=== PATIENT | female | born 1990 | race Caucasian/White ===

== ENCOUNTER → 2017-01-09 | Outpatient (CLI) | payer BC ==
[~2017-01-09] MED LIST: ACET1TAB43 PO; ASPI-586 PO; BIRTH CONTROL PILLS; CEPH500C PO; ENOX40DI13 SQ; ENOX40DI8; FERR-57 PO; FLUO40CA PO; FRS325T; HYDR-3600 PO; HYDR1TAB PO; IBUP-1773 PO; MECL25TA3 PO; MONONESSA; PREN1TAB14 PO; PREN1TAB39 PO; SERT50TA9 PO; TRAZ150T42 PO; VICODIN; [UNRECOGNIZED DRUG - CODE] SC
== END ==
LOC: LAB 12:12
PROVIDERS: ATTEND Obstetrics & Gynecology
DX: Z32.01 Encounter for pregnancy test, result positive (principal)
CPT/HCPCS: 36415; 84702

== ENCOUNTER → 2017-02-02 | Outpatient (CLI) | payer BC ==
--- NOTE | 2017-02-02 18:11 | Diagnostic Imaging Report ---
Transabdominal and transvaginal pelvic ultrasound. INDICATION: Pelvic pain. IUD in place. FINDINGS: The uterus is 7.9 x 5.1 x 4.4 cm. Endometrial thickness is 0.6 cm. There is an IUD that appears in good position. No myometrial mass is seen. The right ovary is 3.3 x 3 x 1.5 cm. The left ovary is 3.9 x 3.9 x 1.9 cm. The urinary bladder appears unremarkable. Arterial and venous waveforms are seen in both ovaries. There is no free fluid or fluid collection in the pelvis seen. IMPRESSION: No definite abnormality. IUD is seen in good position. Dictated by: Dictated on workstation # [id number]
== END ==
LOC: RAD 10:20
PROVIDERS: ATTEND Obstetrics & Gynecology
DX: R10.2 Pelvic and perineal pain (principal); Z97.5 Presence of (intrauterine) contraceptive device
CPT/HCPCS: 76830; 76856

== ENCOUNTER 2017-11-21 14:27 | Day surgery (SDC) | payer BC ==
[~2017-11-21] VITALS: Ht 160 cm; Wt 56.7 kg
[2017-11-21] MEDS ORDERED: LACTATED RINGERS 1,000 ML IV ONE (14:32)
--- OUTSIDE RECORDS SUMMARY | 2017-11-21 14:32 | XMS REPORT | Continuity of Care Document ---
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 [facility] Arthralgia of temporomandibular joint 12/24/2014 [facility] Unspecified essential hypertension 12/24/2014 [facility] Medications Medication Details Route Status Patient Instructions Ordering Provider Order Date Source Metoprolol Active [facility] Methocarbamol 750 MG Oral Tablet [Robaxin] =750 mg, 1 tab, PO, BID, X 14 Days, # 28 tab, 2 Refill(s) Inactive [facility] naproxen sodium 550 mg oral tablet =550 mg, 1 tab, PO, BID, PRN for pain, X 30 Days, # 60 tab, 1 Refill(s) Inactive [facility] Diazepam 5 MG Oral Tablet [Valium] =5 mg, 1 tab, PO, QHS, X 7 Days, # 7 tab, 0 Refill(s) Inactive [facility] meloxicam 7.5 MG Oral Tablet [Mobic] =7.5 mg, 1 tab, PO, Daily, # 90 tab, 0 Refill(s) Active [facility] Allergies, Adverse Reactions, Alerts Substance Category Reaction Severity Reaction type Status Date Reported Comments Source penicillins Assertion Drug allergy [facility] Immunizations Results Vital Signs Vital Sign Value Date Comments Source Cuff Size Adult Regular Cuff
(01/16/15 10:51 AM) 01/16/2015 [facility] Heart Rate 108 bpm 2014 [facility] Temperature Oral 97.3 [degF] 01/16/2015 [facility] Resp. Rate 16 BRMIN 2014 [facility] BP Site Right Arm
(01/16/15 10:51 AM) 01/16/2015 [facility] Oxygen Saturation 100 % 01/16 [facility] Systolic BP 128 mmHg 2014 [facility] Diastolic BP 86 mmHg 2014 [facility] O2 Source Room Air
(01/16/15 10:51 AM) 01/16/2015 [facility] Cuff Size Adult Regular Cuff
(01/01/15 1:00 PM) 01/01/2015 [facility] Heart Rate 111 bpm 2014 [facility] Resp. Rate 20 BRMIN 2014 [facility] Systolic BP 133 mmHg 2014 [facility] Diastolic BP 88 mmHg 2014 [facility] BP Site Right Arm
(01/01/15 1:00 PM) 01/01/2015 [facility] BP Site Right Arm
(12/19/14 1:29 PM) 12/19/2014 [facility] Cuff Size Adult Regular Cuff
(12/19/14 1:29 PM) 12/19/2014 [facility] Systolic BP 124 mmHg 2014 [facility] Diastolic BP 83 mmHg 2014 [facility] Resp. Rate 16 BRMIN 2014 [facility] Heart Rate 92 bpm 12/19/2014 [facility] Temperature Oral 98.7 [degF] 12/19/2014 [facility] Encounters Location Location Details Encounter Type Encounter Number Reason For Visit Attending Provider ADM Date DC Date Status Source [facility] [id number] Shashi Potter 12/19/2014 12/20/2014 [facility] [id number] Kristian Quijano 01/01/2015 01/02/2015 [facility] [id number] Kristian [facility] 01/16/2015 01/17/2015 [facility] Procedures Plan of Care Social History Assessment and Plan Assessment and Plan Date Source Title:Ambulatory Patient Education Author:Cesar Garcia [facility]. [facility] [address] [place] [address] Visit Information/Informacion de Visita Name/Nombre: QUIQUEEMMANUELSUSAN HICKMANSAY Date of /Fecha de Nacimiento: 1990 12:00 AM Visit Date/Fecha de Visita: [facility] Provider/Proveedor de Clinica: Resident Provider: Cesar Garcia Attending Provider: Kristian Quijano This is the list of current medications in your medical record. It may include medications from visits to other areas of the hospital and medications you told us were prescribed by other doctors. If you have questions about any medications that were not prescribed from this clinic, please contact the doctor who prescribed them. Your Medications/Nicky Medicamentos Here is a list of your medications/Aqu est cathi lista de nicky medicinas. Medication/Strength Dose Route Frequency Indications/Special Instructions/ Comments meloxicam (Mobic 7.5 mg oral tablet) 7.5 mg By Mouth daily methocarbamol (Robaxin-750 750 mg oral tablet) 750 mg By Mouth twice per day naproxen (naproxen sodium 550 mg oral tablet) 550 mg By Mouth twice per day as needed for for pain metoprolol (metoprolol) If you haven't been contacted for an appointment within two weeks, please call [phone] for [facility] or for [facility]. Future Orders Placed Today/Ordenes de Doctor Patient Follow-up Information/Informacion de seguimiento del paciente Your Upcoming Appointments/Nicky proximas citas Please bring all home medications to every visit with us at [facility]. Your safety and education around medications is our goal. (Prescription , non prescription and herbal supplements) Date Time Location Reason Provider No Appointments found Additional Patient Information/Informacion adicional del paciente: Blood Pressure: 128/86 mmHg Patient Instructions/Instrucciones para el Paciente All smokers are encouraged to stop smoking. If you would like help, talk to your doctor or call [facility] [place] [facility] Quitline at 9-959-UCCF-NOW (1-388-101- 1101). If you have thoughts about committing suicide or otherwise hurting yourself, please call 911 or call Crisis Line at . Prescription leaflets: Take Charge of Your Health with [employer] Sign up today for StepsAwayPixie Technology for access to your health records 27/02. Sc[employer]ix allows you to: Request an appointment Check your lab results Communicate with your providers and care team See provider notes from your visit View immunization records View current medication Sign up Today! Ask your healthcare provider or a [facility] associate for help, or email [email or web address]. [email or web address] 01/21/2015 [facility] * Title:Ambulatory Patient Education Author:Cesar Garcia Date:01/16/15 [facility]. [facility] [address] [place] [address] Visit Information/Informacion de Visita Name/Nombre: MELY SMART Date of /Fecha de Nacimiento: 1990 12:00 AM Visit Date/Fecha de Visita: [facility] Provider/Proveedor de Clinica: Resident Provider: Cesar Garcia Attending Provider: Kristian Quiajno This is the list of current medications in your medical record. It may include medications from visits to other areas of the hospital and medications you told us were prescribed by other doctors. If you have questions about any medications that were not prescribed from this clinic, please contact the doctor who prescribed them. Your Medications/Nicky Medicamentos Here is a list of your medications/Aqu est cathi lista de nicky medicinas. Medication/Strength Dose Route Frequency Indications/Special Instructions/ Comments meloxicam (Mobic 7.5 mg oral tablet) 7.5 mg By Mouth daily methocarbamol (Robaxin-750 750 mg oral tablet) 750 mg By Mouth twice per day naproxen (naproxen sodium 550 mg oral tablet) 550 mg By Mouth twice per day as needed for for pain metoprolol (metoprolol) If you haven't been contacted for an appointment within two weeks, please call [phone] for [facility] or for [place]. Future Orders Placed Today/Ordenes de Doctor Patient Follow-up Information/Informacion de seguimiento del paciente Your Upcoming Appointments/Nicky proximas citas Please bring all home medications to every visit with us at [facility]. Your safety and education around medications is our goal. (Prescription , non prescription and herbal supplements) Date Time Location Reason Provider No Appointments found Additional Patient Information/Informacion adicional del paciente: Blood Pressure: 128/86 mmHg Patient Instructions/Instrucciones para el Paciente All smokers are encouraged to stop smoking. If you would like help, talk to your doctor or call [facility] [place] [facility] Quitline at 0-337-GEBINOW (0-701-477- 7005). If you have thoughts about committing suicide or otherwise hurting yourself, please call 911 or call Crisis Line at . Prescription leaflets: Take Charge of Your Health with [employer] Sign up today for [employer] for access to your health records 27/02. [employer] allows you to: Request an appointment Check your lab results Communicate with your providers and care team See provider notes from your visit View immunization records View current medication Sign up Today! Ask your healthcare provider or a [facility] associate for help, or email SocialPicksMountain View Regional Medical [email or web address] [email or web address]. [email or web address] 01/17/2015 [facility] * Title:Ambulatory Patient Education Author:Kennedy Robbins Date:01/01/15 [facility]. [facility] [address] [place] [id number] Visit Information/Informacion de Visita Name/Nombre: MELY SMART Date of /Fecha de Nacimiento: 1990 12:00 AM Visit Date/Fecha de Visita: [facility] Provider/Proveedor de Clinica: Resident Provider: Yaw Ontiveros DMD Attending Provider: Kristian Quijano This is the list of current medications in your medical record. It may include medications from visits to other areas of the hospital and medications you told us were prescribed by other doctors. If you have questions about any medications that were not prescribed from this clinic, please contact the doctor who prescribed them. Your Medications/Nicky Medicamentos Here is a list of your medications/Aqu est cathi lista de nicky medicinas. Medication/Strength Dose Route Frequency Indications/Special Instructions/ Comments diazepam (Valium 5 mg oral tablet) 5 mg By Mouth at bedtime methylprednisolone (Medrol Dosepak 4 mg oral tablet) 1 packet(s) By Mouth ONCE as directed on package labeling methocarbamol (Robaxin-750 750 mg oral tablet) 750 mg By Mouth twice per day naproxen (naproxen sodium 550 mg oral tablet) 550 mg By Mouth twice per day as needed for for pain metoprolol (metoprolol) If you haven't been contacted for an appointment within two weeks, please call for [facility] or for [place]. Future Orders Placed Today/Ordenes de Doctor Order Name Details Ordering Provider Return to Clinic Appointment Request Requested Start Date/Time: 01/01/15 14:19: 00 RTC Appointment Request: 2 Weeks Reason for Appt: TMJ Special Instructions: f/u Kennedy Robbins Patient Follow-up Information/Informacion de seguimiento del paciente Your Upcoming Appointments/Nicky proximas citas Please bring all home medications to every visit with us at [facility]. Your safety and education around medications is our goal. (Prescription , non prescription and herbal supplements) Date Time Location Reason Provider No Appointments found Additional Patient Information/Informacion adicional del paciente: Blood Pressure: 133/88 mmHg Patient Instructions/Instrucciones para el Paciente All smokers are encouraged to stop smoking. If you would like help, talk to your doctor or call [facility] [place] Tobacco Quitline at 3-860-GTBM-NOW (0-102-982- 7489). If you have thoughts about committing suicide or otherwise hurting yourself, please call 341 or call Crisis Line at . Prescription leaflets: Take Charge of Your Health with [employer] Sign up today for [employer] for access to your health records 27/02. [employer] allows you to: Request an appointment Check your lab results Communicate with your providers and care team See provider notes from your visit View immunization records View current medication Sign up Today! Ask your healthcare provider or a [facility] associate for help, or email [email or web address]. [email or web address] 01/06/2015 [facility] * Title:Ambulatory Patient Education Author:Kennedy Robbins Date:01/01/15 [facility]. [facility] [address] [place] [address] Visit Information/Informacion de Visita Name/Nombre: MELY SMART Date of /Fecha de Nacimiento: 1990 12:00 AM Visit Date/Fecha de Visita: [facility] Provider/Proveedor de Clinica: Resident Provider: Yaw Ontiveros DMD Attending Provider: Kristian Quijano This is the list of current medications in your medical record. It may include medications from visits to other areas of the hospital and medications you told us were prescribed by other doctors. If you have questions about any medications that were not prescribed from this clinic, please contact the doctor who prescribed them. Your Medications/Nicky Medicamentos Here is a list of your medications/Aqu est cathi lista de nicky medicinas. Medication/Strength Dose Route Frequency Indications/Special Instructions/ Comments diazepam (Valium 5 mg oral tablet) 5 mg By Mouth at bedtime methylprednisolone (Medrol Dosepak 4 mg oral tablet) 1 packet(s) By Mouth ONCE as directed on package labeling methocarbamol (Robaxin-750 750 mg oral tablet) 750 mg By Mouth twice per day naproxen (naproxen sodium 550 mg oral tablet) 550 mg By Mouth twice per day as needed for for pain metoprolol (metoprolol) If you haven't been contacted for an appointment within two weeks, please call for [facility] or for [facility]. Future Orders Placed Today/Ordenes de Doctor Order Name Details Ordering Provider Return to Clinic Appointment Request Requested Start Date/Time: 01/01/15 14:19: 00 RTC Appointment Request: 2 Weeks Reason for Appt: TMJ Special Instructions: f/u Kennedy Robbins Patient Follow-up Information/Informacion de seguimiento del paciente Your Upcoming Appointments/Nicky proximas citas Please bring all home medications to every visit with us at [facility]. Your safety and education around medications is our goal. (Prescription , non prescription and herbal supplements) Date Time Location Reason Provider No Appointments found Additional Patient Information/Informacion adicional del paciente: Blood Pressure: 133/88 mmHg Patient Instructions/Instrucciones para el Paciente All smokers are encouraged to stop smoking. If you would like help, talk to your doctor or call [facility] [place] Tobacco Quitline at 0-115-ODIVNOW (4-513-236- 2846). If you have thoughts about committing suicide or otherwise hurting yourself, please call 911 or call Crisis Line at . Prescription leaflets: Take Charge of Your Health with [employer] Sign up today for StepsAwayPixie Technology for access to your health records 27/02. VoxieealSwivel allows you to: Request an appointment Check your lab results Communicate with your providers and care team See provider notes from your visit View immunization records View current medication Sign up Today! Ask your healthcare provider or a [facility] associate for help, or email [email or web address]. [email or web address] medical [email or web address] 01/02/2015 [facility] * Title:Ambulatory Patient Education Author:Kennedy Robbins Date:12/19/14 [facility]. [address] [address] Visit Information/Informacion de Visita Name/Nombre: MELY SMART Date of /Fecha de Nacimiento: 1990 12:00 AM Visit Date/Fecha de Visita: [facility] Provider/Proveedor de Clinica: Resident Provider: Kennedy Robbins Attending Provider: Shashi Potter This is the list of current medications in your medical record. It may include medications from visits to other areas of the hospital and medications you told us were prescribed by other doctors. If you have questions about any medications that were not prescribed from this clinic, please contact the doctor who prescribed them. Your Medications/Nicky Medicamentos Here is a list of your medications/Aqu est cathi lista de nicky medicinas. Medication/Strength Dose Route Frequency Indications/Special Instructions/ Comments methylprednisolone (Medrol Dosepak 4 mg oral tablet) 1 packet(s) By Mouth ONCE as directed on package labeling methocarbamol (Robaxin-750 750 mg oral tablet) 750 mg By Mouth twice per day naproxen (naproxen sodium 550 mg oral tablet) 550 mg By Mouth twice per day as needed for for pain metoprolol (metoprolol) If you haven't been contacted for an appointment within two weeks, please call for [facility] or for [facility]. Future Orders Placed Today/Ordenes de Doctor Order Name Details Ordering Provider Return to Clinic Appointment Request Requested Start Date/Time: 12/19/14 14:45: 00 RTC Appointment Request: Other Follow Up Physician: Nehemias Farah Special Instructions: patient to call to schedule after MRI Kennedy Robbins Patient Follow-up Information/Informacion de seguimiento del paciente Your Upcoming Appointments/Nicky proximas citas Please bring all home medications to every visit with us at [facility]. Your safety and education around medications is our goal. (Prescription , non prescription and herbal supplements) Date Time Location Reason Provider No Appointments found Additional Patient Information/Informacion adicional del paciente: Blood Pressure: 124/83 mmHg Patient Instructions/Instrucciones para el Paciente All smokers are encouraged to stop smoking. If you would like help, talk to your doctor or call [facility] [place] Tobacco Quitline at 4-133-HCOGNOW (8-129-843- 0716). If you have thoughts about committing suicide or otherwise hurting yourself, please call 911 or call Crisis Line at . Prescription leaflets: Take Charge of Your Health with SocialPicksMountain View Regional Medical CenterPixie Technology Sign up today for StepsAwayPixie Technology for access to your health records 27/02. VoxiePixie Technology allows you to: Request an appointment Check your lab results Communicate with your providers and care team See provider notes from your visit View immunization records View current medication Sign up Today! Ask your healthcare provider or a [facility] associate for help, or email [email or web address]. [email or web address] 12/24/2014 [facility] * Title:Ambulatory Patient Education Author:Kennedy Robbins Date:12/19/14 [facility]. [facility] [address] [place] [address] Visit Information/Informacion de Visita Name/Nombre: MELY SMART Date of /Fecha de Nacimiento: 1990 12:00 AM Visit Date/Fecha de Visita: [facility] Provider/Proveedor de Clinica: Resident Provider: Kennedy Robbins Attending Provider: Shashi Potter This is the list of current medications in your medical record. It may include medications from visits to other areas of the hospital and medications you told us were prescribed by other doctors. If you have questions about any medications that were not prescribed from this clinic, please contact the doctor who prescribed them. Your Medications/Nicky Medicamentos Here is a list of your medications/Aqu est cathi lista de nicky medicinas. Medication/Strength Dose Route Frequency Indications/Special Instructions/ Comments methylprednisolone (Medrol Dosepak 4 mg oral tablet) 1 packet(s) By Mouth ONCE as directed on package labeling methocarbamol (Robaxin-750 750 mg oral tablet) 750 mg By Mouth twice per day naproxen (naproxen sodium 550 mg oral tablet) 550 mg By Mouth twice per day as needed for for pain metoprolol (metoprolol) If you haven't been contacted for an appointment within two weeks, please call for [facility] or for [facility]. Future Orders Placed Today/Ordenes de Doctor Order Name Details Ordering Provider Return to Clinic Appointment Request Requested Start Date/Time: 12/19/14 14:45: 00 RTC Appointment Request: Other Follow Up Physician: Nehemias Farah Special Instructions: patient to call to schedule after MRI Kennedy Robbins Patient Follow-up Information/Informacion de seguimiento del paciente Your Upcoming Appointments/Nicky proximas citas Please bring all home medications to every visit with us at [facility]. Your safety and education around medications is our goal. (Prescription , non prescription and herbal supplements) Date Time Location Reason Provider No Appointments found Additional Patient Information/Informacion adicional del paciente: Blood Pressure: 124/83 mmHg Patient Instructions/Instrucciones para el Paciente All smokers are encouraged to stop smoking. If you would like help, talk to your doctor or call The [place] Tobacco Quitline at 0-834-RFNQNOW (8-362-423- 2920). If you have thoughts about committing suicide or otherwise hurting yourself, please call 911 or call Crisis Line at . Prescription leaflets: Take Charge of Your Health with SocialPicksMountain View Regional Medical CenterScopial Fashion Sign up today for [employer] for access to your health records 27/02. Sc[employer]ix allows you to: Request an appointment Check your lab results Communicate with your providers and care team See provider notes from your visit View immunization records View current medication Sign up Today! Ask your healthcare provider or a [facility] associate for help, or email [email or web address]. [email or web address] 12/20/2014 [facility] Family History Advance Directives Functional Status
--- OUTSIDE RECORDS SUMMARY | 2017-11-21 14:33 | XMS REPORT | Summary of Care ---
Author Organization Unknown Address Unknown Phone Unavailable Encounter [facility] Date(s): 01/16/15 - 01/16/15 [facility] [address] [place] [address] [phone] Discharge Disposition: Discharge to Home or Self-care Attending Physician: Kristian Quijano Admitting Physician: Kristian Quijano Vital Signs Most recent to 1 oldest [Reference Range]: Temperature Oral 97.3 DegF [96.4-99.1 DegF] (01/16/15 10:51 AM) Heart Rate [60-100 108 bpm bpm] *HI* (01/16/15 10:51 AM) Resp. Rate [14-20 16 BRMIN BRMIN] (01/16/15 10:51 AM) Blood Pressure 128/86 mmHg [90-140/60-90 mmHg] (01/16/15 10:51 AM) BP Site Right Arm (01/16/15 10:51 AM) Cuff Size Adult Regular Cuff (01/16/15 10:51 AM) Oxygen Saturation 100 % [92-100 %] (01/16/15 10:51 AM) O2 Source Room Air (01/16/15 10:51 AM) Problem List No data available for this section Allergies, Adverse Reactions, Alerts Substance Reaction Severity Status penicillins Active Medications metoprolol Start Date: 12/19/14 Status: Ordered Mobic 7.5 mg oral tablet =7.5 mg, 1 tab, PO, Daily, # 90 tab, 0 Refill(s) Start Date: 01/16/15 Status: Ordered naproxen sodium 550 mg oral tablet =550 mg, 1 tab, PO, BID, PRN for pain, X 30 Days, # 60 tab, 1 Refill(s) Start Date: 12/19/14 Stop Date: 02/17/15 Status: Ordered Robaxin-750 750 mg oral tablet =750 mg, 1 tab, PO, BID, X 14 Days, # 28 tab, 2 Refill(s) Start Date: 12/19/14 Stop Date: 01/30/15 Status: Ordered Results No data available for this section Immunizations No data available for this section Procedures No data available for this section Social History No data available for this section Functional Status No data available for this section Assessment and Plan Extracted from: Title: Ambulatory Patient Education Author: Cesar Garcia Date: 07/21 [facility]. [facility] [address] [place] [address] Visit Information/Informacion de Visita Name/Nombre: MELY SMART [...] appointment within two weeks, please call for [facility] or for [place]. Future Orders Placed Today/Ordenes de Doctor Patient Follow-up Information/Informacion de seguimiento del paciente Your Upcoming Appointments/Nicky proximas citas Please bring all home medications to every visit with us at [facility]. Your safety and education around medications is our goal. (Prescription , non prescription and herbal supplements) Date Time Location Reason Provider No Appointments found Additional Patient Information/Informacion adicional del paciente: Blood Pressure: 128/86 mmHg Patient Instructions/Instrucciones para el Paciente All smokers are encouraged to stop smoking. If you would like help, talk to your doctor or call The [place] Tobacco Quitline at 0-375-ACUCNOW (6-158-889- 2992). If you have thoughts about committing suicide or otherwise hurting yourself, please call 911 or call Crisis Line at . Prescription leaflets: Take Charge of Your Health with [facility] [employer] Sign up today for [employer] for access to your health records 27/02. [employer] allows you to: Request an appointment Check your lab results Communicate with your providers and care team See provider notes from your visit View immunization records View current medication Sign up Today! Ask your healthcare provider or a [facility] associate for help, or email [email or web address]. [email or web address] Discharge Instructions No data available for this section
--- OUTSIDE RECORDS SUMMARY | 2017-11-21 14:33 | XMS REPORT | Summary of Care ---
Author Organization Unknown Address Unknown Phone Unavailable Encounter [facility] [id number] Date(s): 12/19/14 - 12/19/14 [facility] [address] [place] [address] [phone] Final: Arthralgia of Temporomandibular Joint Final: Unspecified Essential Hypertension Discharge Disposition: Discharge to Home or Self-care Attending Physician: Shashi Potter Admitting Physician: Shashi Potter Vital Signs Most recent to 1 oldest [Reference Range]: Temperature Oral 98.7 DegF [96.4-99.1 DegF] (12/19/14 1:29 PM) Heart Rate [60-100 92 bpm bpm] (12/19/14 1:29 PM) Resp. Rate [14-20 16 BRMIN BRMIN] (12/19/14 1:29 PM) Blood Pressure 124/83 mmHg [90-140/60-90 mmHg] (12/19/14 1:29 PM) BP Site Right Arm (12/19/14 1:29 PM) Cuff Size Adult Regular Cuff (12/19/14 1:29 PM) Problem List No data available for this section Allergies, Adverse Reactions, Alerts Substance Reaction Severity Status penicillins Active Medications metoprolol Start Date: 12/19/14 Status: Ordered naproxen sodium 550 mg oral [...] Extracted from: Title: Ambulatory Patient Education Author: Kennedy Robbins Date: 12/19/14 [facility]. [facility] [address] [place] [address] Visit Information/Informacion de Visita Name/Nombre: MELY SMATR Date of /Fecha de Nacimiento: 1990 12:00 AM Visit Date/Fecha de Visita: [facility] Provider/Proveedor de Clinica: Resident Provider: Kennedy Robbins Attending Provider: Shashi Potter This is the list of current medications in your medical record. It may include medications from visits to other areas of the [facility] and medications you told us were prescribed [...] appointment within two weeks, please call for [facility] or for [place]. Future Orders Placed Today/Ordenes de Doctor Order [...] medications to every visit with us at [facility]. Your safety and education around medications is our goal. (Prescription , non prescription and herbal supplements) Date Time Location Reason Provider No Appointments found Additional Patient Information/Informacion adicional del paciente: Blood Pressure: 124/83 mmHg Patient Instructions/Instrucciones para el Paciente All smokers are encouraged to stop smoking. If you would like help, talk to your doctor or call The [place] Tobacco Quitline at 2-733-UUGSNOW (0-873-840- 5781). If you have thoughts about committing suicide or otherwise hurting yourself, please call 911 or call Crisis Line at . Prescription leaflets: Take Charge of Your Health with [facility] Center[facility] Sign up today for Easy[employer]iBai[employer]sho[employer] for access to your health records 27/02. [employer] allows you to: Request an appointment Check your lab results Communicate with your providers and care team See provider notes from your visit View immunization records View current medication Sign up Today! Ask your healthcare provider or a [facility] associate for help, or email [email or web address]. [email or web address] Hospital Discharge Instructions No data available for this section
--- OUTSIDE RECORDS SUMMARY | 2017-11-21 14:33 | XMS REPORT | Summary of Care ---
Author Organization Unknown Address Unknown Phone Unavailable Encounter [facility] Date(s): 01/16/15 - 01/16/15 [facility] [address] [place] [address] [phone] Discharge Disposition: Discharge to Home or Self-care OP Attending Physician: Kristian Quijano Admitting Physician: Kristian [...] 1 Refill(s) Start Date: 12/19/14 Stop Date: 7/14/15 Status: Ordered Robaxin-750 750 mg oral tablet [...] Patient Education Author: Cesar Garcia Date: 07/21 [facility]. [facility] [address] [place] [address] Visit Information/Informacion de Visita Name/Nombre: MELY SMART [...] appointment within two weeks, please call [phone] for [facility] or for [place]. Future Orders Placed Today/Ordenes de Doctor Patient Follow-up Information/Informacion de seguimiento del paciente Your Upcoming Appointments/Nicky proximas citas Please bring all home medications to every visit with us at [facility]. Your safety and education around medications is our goal. (Prescription , non prescription and herbal supplements) Date Time Location Reason Provider No Appointments found Additional Patient Information/Informacion adicional del paciente: Blood Pressure: 128/86 mmHg Patient Instructions/Instrucciones para el Paciente All smokers are encouraged to stop smoking. If you would like help, talk to your doctor or call The [place] Tobacco Quitline at 1-385-YBSSNOW (3-133-177- 0914). If you have thoughts about committing suicide or otherwise hurting yourself, please call 911 or call Crisis Line at . Prescription leaflets: Take Charge of Your Health with [employer] Sign up today for [employer] for access to your health records 27/02. [employer] allows you to: Request an appointment Check your lab results Communicate with your providers and care team See provider notes from your visit View immunization records View current medication Sign up Today! Ask your healthcare provider or a [facility] associate for help, or email [email or web address]. [email or web address] Discharge Instructions No data available for this section
--- OUTSIDE RECORDS SUMMARY | 2017-11-21 14:33 | XMS REPORT | Summary of Care ---
Author Organization Unknown Address Unknown Phone Unavailable Encounter [facility] [id number] Date(s): 01/01/15 - 01/01/[address] [address] [phone] Final: Atypical Face Pain Final: Reverse Articulation Discharge Disposition: Discharge to Home or Self-care Attending Physician: Kristian Quijano Admitting Physician: Kristian Quijano Vital Signs Most recent to 1 oldest [Reference Range]: Heart Rate [60-100 111 bpm bpm] *HI* (01/01/15 1:00 PM) Resp. Rate [14-20 20 BRMIN BRMIN] (01/01/15 1:00 PM) Blood Pressure 133/88 mmHg [90-140/60-90 mmHg] (01/01/15 1:00 PM) BP Site Right Arm (01/01/15 1:00 PM) Cuff Size Adult Regular Cuff (01/01/15 1:00 PM) Problem List No data available for [...] Date: 12/19/14 Stop Date: 01/30/15 Status: Ordered Valium 5 mg oral tablet =5 mg, 1 tab, PO, QHS, X 7 Days, # 7 tab, 0 Refill(s) Start Date: 01/01/15 Stop Date: 01/08/15 Status: Ordered Results No data available for this section Immunizations No data available for this section Procedures No data available for this section Social History No data available for this section Functional Status No data available for this section Assessment and Plan Extracted from: Title: Ambulatory Patient Education Author: Kennedy Robbins Date: 01/01/15 [facility]. [facility] [address] [place] [address] Visit Information/Informacion de Visita Name/Nombre: MELY SMART [...] appointment within two weeks, please call for [facility] or for [place]. Future Orders Placed Today/Ordenes de Doctor Order Name Details Ordering Provider Return to Clinic Appointment Request Requested Start Date/Time: 01/01/15 14:19: 00 RTC Appointment Request: 2 Weeks Reason for Appt: TMJ Special Instructions: f/u Kennedy Robbins Patient Follow-up Information/Informacion de seguimiento del paciente Your Upcoming Appointments/Nicky proximas citas Please bring all home medications to every visit with us at [facility]. Your safety and education around medications is our goal. (Prescription , non prescription and herbal supplements) Date Time Location Reason Provider No Appointments found Additional Patient Information/Informacion adicional del paciente: Blood Pressure: 133/88 mmHg Patient Instructions/Instrucciones para el Paciente All smokers are encouraged to stop smoking. If you would like help, talk to your doctor or call The [place] Tobacco Quitline at 0-891-ZGYPNOW (0-143-881- 3884). If you have thoughts about committing suicide or otherwise hurting yourself, please call 911 or call Crisis Line at . Prescription leaflets: Take Charge of Your Health with [facility] Sign up today for [facility] Healthm[facility] memorial hospitalBioTrove for access to your health records 27/02. Prism [employer] allows you to: Request an appointment Check your lab results Communicate with your providers and care team See provider notes from your visit View immunization records View current medication Sign up Today! Ask your healthcare provider or a [facility] associate for help, or email myAcoma-[email or web address] [email or web address]. [email or web address] [email or web address] Hospital Discharge Instructions No data available for this section
--- OUTSIDE RECORDS SUMMARY | 2017-11-21 14:33 | XMS REPORT | Summary of Care ---
Author Organization Unknown Address Unknown Phone Unavailable Encounter [facility] Date(s): 01/01/15 - 01/01/15 [facility] [address] [place] [id number] [phone] Discharge Disposition: Discharge to Home or Self-care [...] Patient Education Author: Kennedy Robbins Date: 01/01/15 [facility]. [facility] [address] [place] [address] Visit Information/Informacion de Visita Name/Nombre: MELY SMART [...] appointment within two weeks, please call [phone] for [facility] or for [place]. Future Orders Placed Today/Ordenes de Doctor Order Name Details Ordering Provider Return to Clinic Appointment Request Requested Start Date/Time: 01/01/15 14:19: 00 RTC Appointment Request: 2 Weeks Reason for Appt: TMJ Special Instructions: f/u Kennedy Robbins Patient Follow-up Information/Informacion de seguimiento del paciente Your Upcoming Appointments/Nicky proximas citas Please bring all home medications to every visit with us at [facility]. Your safety and education around medications is our goal. (Prescription , non prescription and herbal supplements) Date Time Location Reason Provider No Appointments found Additional Patient Information/Informacion adicional del paciente: Blood Pressure: 133/88 mmHg Patient Instructions/Instrucciones para el Paciente All smokers are encouraged to stop smoking. If you would like help, talk to your doctor or call The [place] Tobacco Quitline at 7-412-YMDCNOW (5-757-272- 8941). If you have thoughts about committing suicide or otherwise hurting yourself, please call 911 or call Crisis Line at . Prescription leaflets: Take Charge of Your Health with [facility] Sign up today for Stor[employer]Sword.com for access to your health records 27/02. Across [employer] allows you to: Request an appointment Check your lab results Communicate with your providers and care team See provider notes from your visit View immunization records View current medication Sign up Today! Ask your healthcare provider or a [facility] associate for help, or email [email or web address]. [email or web address]/[facility] Discharge Instructions No data available for this section
--- OUTSIDE RECORDS SUMMARY | 2017-11-21 14:33 | XMS REPORT | Summary of Care ---
Author Organization Unknown Address Unknown Phone Unavailable Encounter [facility] Date(s): 12/19/14 - 12/19/14 [facility] [address] [place] [address] [phone] Discharge Disposition: Discharge to Home or Self-care OP Attending Physician: Shashi Potter Admitting Physician: Shashi [...] Patient Education Author: Kennedy Robbins Date: 12/19/14 [facility]. [facility] [address] [place] [address] Visit Information/Informacion de Visita Name/Nombre: MELY SMART [...] appointment within two weeks, please call for [facility] or for [place]. Future Orders Placed Today/Ordenes de Doctor Order [...] medications to every visit with us at [facility]. Your safety and education around medications is our goal. (Prescription , non prescription and herbal supplements) Date Time Location Reason Provider No Appointments found Additional Patient Information/Informacion adicional del paciente: Blood Pressure: 124/83 mmHg Patient Instructions/Instrucciones para el Paciente All smokers are encouraged to stop smoking. If you would like help, talk to your doctor or call The [place] Tobacco Quitline at 4-275-BBGWNOW (9-960-316- 6802). If you have thoughts about committing suicide or otherwise hurting yourself, please call 911 or call Crisis Line at . Prescription leaflets: Take Charge of Your Health with [employer] [facility] Sign up today for [facility] for access to your health records 27/02. [employer] allows you to: Request an appointment Check your lab results Communicate with your providers and care team See provider notes from your visit View immunization records View current medication Sign up Today! Ask your healthcare provider or a [facility] associate for help, or email [email or web address]. [email or web address] Hospital Discharge Instructions No data available for this section
--- OUTSIDE RECORDS SUMMARY | 2017-11-21 14:34 | XMS REPORT | Continuity of Care Document ---
Author Author [facility] Organization [facility] Address Unknown Phone Unavailable Allergies Active Description Code Type Severity Reaction Onset Reported/Identified Relationship to Patient Clinical Status Yes Penicillins [id number] Drug Allergy Mild RASH, CAN TAKE 05/07/2008 Medications There is no data. Problems Date Dx Coded Attending Type Code Diagnosis Diagnosed By 02/03/2010 Ot 814.00 02/03/2010 Ot 959.3 02/03/2010 Ot E000.8 02/03/2010 Ot E007.3 02/03/2010 Ot E849.4 02/03/2010 Ot E886.0 07/15/2011 Ot 369.9 07/15/2011 Ot 599.0 08/16/2011 Ot 644.03 THRT [place] LABOR-ANTEPART 08/18/2011 Ot 644.03 THRT [facility] LAB[facility]-ANTEPART 09/01/2011 Ot 285.1 AC POSTHEMORRHAG ANEMIA 09/01/2011 Ot 285.9 ANEMIA NOS 09/01/2011 Ot 642.41 MILD/NOS PREECLAMP-DELIV 09/01/2011 Ot 648.21 ANEMIA- DELIVERED 09/01/2011 Ot 648.22 ANEMIA- DELIVERED W P/P 09/01/2011 Ot V27.0 DELIVER- SINGLE LIVEBORN 12/30/2014 Ot 611.6 12/30/2014 Ot 611.72 12/30/2014 Ot 649.63 12/30/2014 Ot 649.63 12/30/2014 Ot 285.9 12/30/2014 Ot 289.81 12/30/2014 Ot 648.23 12/30/2014 Ot 649.33 12/30/2014 Ot V12.54 12/30/2014 Ot 784.0 12/30/2014 Ot 785.1 12/30/2014 Ot 786.50 12/30/2014 Ot V12.54 12/30/2014 Ot V14.0 12/30/2014 Ot 780.4 12/30/2014 Ot 785.1 12/30/2014 Ot 786.50 12/30/2014 Ot 625.9 12/30/2014 Ot 646.83 01/05/2015 ULICES DDS, ASHLEY Dumont Ot 524.60 01/05/2015 ULICES DDS, ASHLEY Dumont Ot 719.48 01/21/2015 ULICES DDS, ASHLEY Dumont Ot 524.60 01/21/2015 ULICES DDS, ASHLEY Dumont Ot 719.48 04/14/2015 Ot 649.63 04/14/2015 Ot 649.63 04/14/2015 Ot 285.9 04/14/2015 Ot 289.81 04/14/2015 Ot 648.23 04/14/2015 Ot 649.33 04/14/2015 Ot V12.54 04/14/2015 Ot 784.0 04/14/2015 Ot 785.1 04/14/2015 Ot 786.50 04/14/2015 Ot V12.54 04/14/2015 Ot V14.0 04/14/2015 Ot 780.4 04/14/2015 Ot 785.1 04/14/2015 Ot 786.50 04/14/2015 Ot 625.9 04/14/2015 Ot 646.83 04/14/2015 ULICES DDS, ASHLEY Dumont Ot 524.60 04/14/2015 ULICES DDS, ASHLEY Dumont Ot 719.48 04/14/2015 JENNI LOZANO, AMANUEL Buckner Ot 342.90 UNSPEC HEMIPLEGIA HEMIPARESIS UNSPEC S 04/14/2015 JENNI LOZANO, AMANUEL Buckner Ot 346.00 MIGRAINE W AURA W/O INTRACT MGRN W/O STA 04/14/2015 JENNI LOZANO, AMANUEL Buckner Ot 782.0 SKIN SENSATION DISTURB 09/30/2015 ZAHRA LOZANO, MEENA Costa Ot O47.9 FALSE LABOR, UNSPECIFIED 09/30/2015 ZAHRA LOZANO, EMENA Costa Ot Z3A.00 WEEKS OF GESTATION OF NOT SPEC 09/30/2015 Ot 649.63 09/30/2015 Ot 649.63 09/30/2015 Ot 285.9 09/30/2015 Ot 289.81 09/30/2015 Ot 648.23 09/30/2015 Ot 649.33 09/30/2015 Ot V12.54 09/30/2015 Ot 784.0 09/30/2015 Ot 785.1 09/30/2015 Ot 786.50 09/30/2015 Ot V12.54 09/30/2015 Ot V14.0 09/30/2015 Ot 780.4 09/30/2015 Ot 785.1 09/30/2015 Ot 786.50 09/30/2015 Ot 625.9 09/30/2015 Ot 646.83 09/30/2015 ULICES STROUD, ASHLEY Dumont Ot 524.60 09/30/2015 ULICES MILLERS, ASHLEY Dumont Ot 719.48 10/16/2015 Ot 649.63 10/16/2015 Ot 649.63 10/16/2015 Ot 285.9 10/16/2015 Ot 289.81 10/16/2015 Ot 648.23 10/16/2015 Ot 649.33 10/16/2015 Ot V12.54 10/16/2015 Ot 784.0 10/16/2015 Ot 785.1 10/16/2015 Ot 786.50 10/16/2015 Ot V12.54 10/16/2015 Ot V14.0 10/16/2015 Ot 780.4 10/16/2015 Ot 785.1 10/16/2015 Ot 786.50 10/16/2015 Ot 625.9 10/16/2015 Ot 646.83 10/16/2015 ULICES MILLERS, ASHLEY Dumont Ot 524.60 10/16/2015 ULICES MILLERS, ASHLEY Dumont Ot 719.48 10/18/2015 TOMMIE BECKFORD DO Ot O26.893 OTH RELATED CONDITIONS, THIRD 10/18/2015 TOMMIE BECKFORD DO Ot O32.9XX0 MATERNAL CARE FOR MALPRESENTATION OF FET 10/18/2015 TOMMIE BECKFORD DO Ot O99.89 OTH DISEASES AND CONDITIONS COMPL PREG/C 10/18/2015 TOMMIE BECKFORD DO Ot Q24.8 OTHER SPECIFIED CONGENITAL MALFORMATIONS 10/18/2015 TOMMIE BECKFORD DO Ot Z37.0 SINGLE LIVE 10/18/2015 TOMMIE BECKFORD DO Ot Z3A.35 35 WEEKS GESTATION OF 10/18/2015 TOMMIE BECKFORD DO Ot Z86.73 PRSNL HX OF TIA (TIA), AND CEREB INFRC W 11/04/2015 FENECH DO, TOMMIE S Ot O26.893 11/04/2015 FENECH DO, TOMMIE S Ot O32.9XX0 11/04/2015 FENECH DO, TOMMIE S Ot O99.89 11/04/2015 FENECH DO, TOMMIE S Ot Q24.8 11/04/2015 FENECH DO, TOMMIE S Ot Z37.0 11/04/2015 FENECH DO, TOMMIE S Ot Z3A.35 11/04/2015 FENECH DO, TOMMIE S Ot Z86.73 11/04/2015 FENECH DO, TOMMIE S Ot O26.893 11/04/2015 FENECH DO, TOMMIE S Ot O32.9XX0 11/04/2015 FENECH DO, TOMMIE S Ot O99.89 11/04/2015 FENECH DO, TOMMIE S Ot Q24.8 11/04/2015 FENECH DO, TOMMIE S Ot Z37.0 11/04/2015 FENECH DO, TOMMIE S Ot Z3A.35 11/04/2015 FENECH DO, TOMMIE S Ot Z86.73 11/04/2015 FENECH DO, TOMMIE S Ot O26.893 11/04/2015 FENECH DO, TOMMIE S Ot O32.9XX0 11/04/2015 FENECH DO, TOMMIE S Ot O99.89 11/04/2015 FENECH DO, TOMMIE S Ot Q24.8 11/04/2015 FENECH DO, TOMMIE S Ot Z37.0 11/04/2015 FENECH DO, TOMMIE S Ot Z3A.35 11/04/2015 FENECH DO, TOMMIE S Ot Z86.73 12/02/2015 FENECH DO, TOMMIE S Ot M54.9 DORSALGIA, UNSPECIFIED 12/24/2015 FENECH DO, TOMMIE S Ot M54.9 DORSALGIA, UNSPECIFIED 03/04/2016 BART RAMIREZ MD Ot G43.909 MIGRAINE, UNSP, NOT INTRACTABLE, WITHOUT 03/04/2016 BART RAMIREZ MD Ot R42 DIZZINESS AND GIDDINESS 03/07/2016 BART RAMIREZ MD Ot G43.909 MIGRAINE, UNSP, NOT INTRACTABLE, WITHOUT 03/07/2016 BART RAMIREZ MD Ot R42 DIZZINESS AND GIDDINESS 03/30/2016 BART RAMIREZ MD Ot G43.909 MIGRAINE, UNSP, NOT INTRACTABLE, WITHOUT 03/30/2016 ASHLEY LOZANO, BART Wright Ot R42 DIZZINESS AND GIDDINESS 06/21/2016 TOMMIE BECKFORD DO Ot M54.9 DORSALGIA, UNSPECIFIED 06/21/2016 SHAKEEL MCCLOUD, TOMMIE Harper Ot M54.9 DORSALGIA, UNSPECIFIED 08/31/2016 TOMMIE BECKFORD DO Ot M54.9 DORSALGIA, UNSPECIFIED 01/09/2017 Ot 285.9 ANEMIA NOS 01/09/2017 Ot 289.81 PRIMARY HYPERCOAGULABLE STATE 01/09/2017 Ot 648.23 ANEMIA- ANTEPARTUM 01/09/2017 Ot 649.33 COAGULATION DEFECTS COMP PREG/CHILDBIRTH 01/09/2017 Ot V12.54 PERSONAL HX OF TIA, CEREBRAL INFARCTION 01/09/2017 Ot 784.0 HEADACHE 01/09/2017 Ot 785.1 PALPITATIONS 01/09/2017 Ot 786.50 CHEST PAIN NOS 01/09/2017 Ot V12.54 PERSONAL HX OF TIA, CEREBRAL INFARCTION 01/09/2017 Ot V14.0 HX- PENICILLIN ALLERGY 01/09/2017 Ot 780.4 DIZZINESS AND GIDDINESS 01/09/2017 Ot 785.1 PALPITATIONS 01/09/2017 Ot 786.50 CHEST PAIN NOS 01/09/2017 Ot 625.9 FEM GENITAL SYMPTOMS NOS 01/09/2017 Ot 646.83 PREG COMPL NEC-ANTEPART 01/09/2017 ASHLEY ELENA DDS Ot 524.60 TEMPOROMANDIBULAR JOINT DISORDERS, UNSPE 01/09/2017 ASHLEY ELENA DDS Ot 719.48 JOINT PAIN-JT NEC 01/09/2017 TOMMIE BECKFORD DO Ot M54.9 DORSALGIA, UNSPECIFIED 01/18/2017 MELVIN OWENS DO Ot Z32.01 ENCOUNTER FOR TEST, RESULT POS 02/03/2017 TOMMIE BECKFORD DO Ot R10.2 PELVIC AND PERINEAL PAIN 02/03/2017 SHAKEEL MCCLOUD TOMMIE Harper Ot Z97.5 PRESENCE OF (INTRAUTERINE) CONTRACEPTIVE 02/08/2017 TOMMIE BECKFORD DO Ot R10.2 PELVIC AND PERINEAL PAIN 02/08/2017 SHAKEEL MCCLOUD TOMMIE Harper Ot Z97.5 PRESENCE OF (INTRAUTERINE) CONTRACEPTIVE 02/17/2017 TOMMIE BECKFORD DO Ot M54.9 DORSALGIA, UNSPECIFIED 02/17/2017 TOMMIE BECKFORD DO Ot R10.2 PELVIC AND PERINEAL PAIN 02/17/2017 TOMMIE BECKFORD DO Ot Z97.5 PRESENCE OF (INTRAUTERINE) CONTRACEPTIVE Procedures Code Description Performed By Performed On 96.49 OTHER INSTILLATION 08/29/2011 73.6 EPISIOTOMY 08/30/2011 0UQMXZZ REPAIR VULVA, EXTERNAL APPROACH 10/16/2015 [id number] DELIVERY OF PRODUCTS OF CONCEPTION, EXTE 10/16/2015 Results There is no data. Encounters ACCT No. Visit Date/Time Discharge Status Pt. Type Provider Facility Loc./Unit Complaint [id number] 02/02/2017 10:20:00 02/02/2017 23:59:59 CLS Outpatient TOMMIE BECKFORD DO [facility] RAD PELVIC PAIN IN FEMALE R10.2,IUD IN PLACE Z97.5 [id number] 01/09/2017 12:12:00 01/09/2017 23:59:59 CLS Outpatient GRACIELA MCCLOUDMELVIN [facility] LAB Z32.01 [id number] 03/04/2016 12:15:00 03/04/2016 15:49:00 DIS Emergency ASHLEY LOZANO, BART Wright [facility] ER ELEVATED BP/DIZZY/SOA [id number] 11/30/2015 13:58:00 11/30/2015 23:59:59 CLS Outpatient TOMMIE BECKFORD DO [facility] RAD BACK PAIN [id number] 10/15/2015 07:30:00 10/18/2015 12:05:00 DIS Inpatient TOMMIE BECKFORD DO [facility] LDRP BLEEDING,INVERSION [id number] 09/30/2015 13:19:00 09/30/2015 15:30:00 DIS Outpatient ZAHRA LOZANO, MEENA Costa [facility] WSo CRAMPING [id number] 04/14/2015 08:38:00 04/14/2015 11:34:00 DIS Emergency JENNI LOZANO, AMANUEL Buckner [facility] ER VISION CHANGE/LEFT ARM NUMBNESS [id number] 12/30/2014 13:55:00 12/30/2014 23:59:59 [facility] Outpatient ULICES STROUD, ASHLEY [facility] RAD ARTHRITIS [id number] 11/05/2012 11:37:00 Document Registration [id number] 05/14/2012 08:02:00 Document Registration [id number] 04/25/2012 09:22:00 Document Registration [id number] 08/29/2011 12:56:00 Document Registration [id number] 08/18/2011 16:00:00 Document Registration [id number] 08/16/2011 15:20:00 Document Registration [id number] 07/28/2011 13:32:00 Document Registration [id number] 07/15/2011 20:03:00 Document Registration [id number] 05/03/2011 12:51:00 Document Registration [id number] 01/13/2011 11:10:00 Document Registration [id number] 02/03/2010 19:10:00 Document Registration [id number] 08/26/2009 14:44:00 Document Registration [id number] 04/14/2015 08:39:05 ACT Document Registration
[2017-11-21 14:53] LABS: BASOPHILS % (AUTO) 0 % (0-10); EOSINOPHILS % (AUTO) 0 % (0-10); HEMATOCRIT 38 % (35-52); HEMOGLOBIN 12.9 G/DL (11.5-16.0); LYMPHOCYTES # (AUTO) 0.4 X 10^3 (1.0-4.0); LYMPHOCYTES % (AUTO) 4 % (12-44); MEAN CORPUSCULAR HEMOGLOBIN 32 PG (25-34); MEAN CORPUSCULAR HGB CONC 34 G/DL (32-36); MEAN CORPUSCULAR VOLUME 92 FL (80-99); MEAN PLATELET VOLUME 9.3 FL (7.4-10.4); MONOCYTES # (AUTO) 0.5 X 10^3 (0.0-1.0); MONOCYTES % (AUTO) 5 % (0-12); NEUTROPHILS # (AUTO) 8.9 X 10^3 (1.8-7.8); NEUTROPHILS % (AUTO) 91 % (42-75); PLATELET COUNT 196 10^3/uL (130-400); RED BLOOD COUNT 4.08 10^6/uL (4.35-5.85); RED CELL DISTRIBUTION WIDTH 11.8 % (10.0-14.5); WHITE BLOOD COUNT 9.8 10^3/uL (4.3-11.0)
--- NOTE | 2017-11-21 14:53 | History & Physical-Surgical ---
HPO-Surgical History of Present Illness Chief Complaint: Patient presented to the office unaware of with heavy vaginal bleeding. Became syncopal in the office and personally escorted to OR for d and c. Diagnosis/Surgical Indication: Incomplete ab with vaginal hemorrhage, and symptomatic anemia Procedure: Suction d and c Date of Surgery: Nov 21, 2017 Weight (Pounds): 135 Height (Feet): 5 Height (Inches): 3 Allergies and Home Medications Allergies Coded Allergies: Penicillins (Unverified Allergy, Mild, RASH, CAN TAKE CEPHALEXIN, 05/07/08) Home Medications Meclizine HCl 25 Mg Tablet, 25 MG PO QID Prescribed by: BART RAMIREZ on 03/04/16 1520 Sertraline HCl 50 Mg Tablet, 50 MG PO DAILY, (Reported) Patient Home Medication List Home Medication List Reviewed: Yes Past Iyrvitv-Nbpzqc-Wlzmbd Hx Patient Social History Marrital Status: Number of Children: 2 Number of living children: 2 Alcohol Use: Rarely Uses Recent Hopitalizations: No (WENT TO URGENT CARE IN FEBRUARY FOR TICK BITE) Immunizations Up To Date Tetanus Booster (TDap): Less than 5yrs Pediatric: No Date of Influenza Vaccine: Aug 14, 2015 Seasonal Allergies Seasonal Allergies: No Surgeries Abdominal, Tonsillectomy Cardiovascular Valvular Heart Disease Neurological Headaches /Migraines Reproductive System Hx Reproductive Disorders: Yes (hx left sided cystic mass) Sexually Transmitted Disease: No Psychosocial Behavioral Health Disorders: Depression Family Medical History Significant Family History: Heart Disease, Cancer, Hypertension Exam Vital Signs 124/85 HR 125 Labs Bedside US done in office, no fetus seen, but placental tissue noted. General Appearance: Alert, Oriented X3, Moderate Distress HEENT: Atraumatic Respiratory: Clear to Auscultation Cardiovascular: Regular Rate Abdominal: Normal Bowel Sounds, Other (heavy vaginal bleeding from cervical os with POC tissue expressed) Extremities: No Clubbing Skin: No Rashes Neuro: Normal Speech, Other (syncopal upon ambulation) Psych/Mental Status: Mental Status NL Assessment/Plan Assessment and Plan Diagnosis: Incomplete ab with hemorrhage approx 8 weeks Plan: Suction d and c Admission Diagnosis Admission Status: Observation TOMMIE BECKFORD DO Nov 21, 2017 2:53 pm
[2017-11-21] MEDS: LACTATED RINGERS 1,000 ML IV PRN ×3 (14:55→15:28)
[2017-11-21 14:59] VITALS: BP 125/89
[2017-11-21 15:05] LABS: INR 1.1 (0.8-1.4); PROTHROMBIN TIME PATIENT 14.6 SEC (12.2-14.7)
[2017-11-21 15:09] LABS: BAND NEUTROPHILS 10 %; BASOPHILS % (MANUAL) 0 %; EOSINOPHILS % (MANUAL) 0 %; LYMPHOCYTES % (MANUAL) 5 %; MONOCYTES % (MANUAL) 3 %; NEUTROPHILS % (MANUAL) 82 %; RBC MORPH NORMAL
[2017-11-21] MEDS ORDERED: METHYLERGONOVINE 0.2 MG/ML (METHERGINE) AMP ONE (15:25)
[2017-11-21] MEDS ORDERED: SEVOFLURANE (ULTANE) 15 ML INHAL SOLN ONE (15:26)
[2017-11-21] MEDS ORDERED: DEXAMETHASONE 10 MG/ML (DECADRON) 1 ML VIAL ONE (15:26)
[2017-11-21] MEDS ORDERED: LIDOCAINE PF 2% 5 ML (XYLOCAINE) VIAL ONE (15:26)
[2017-11-21] MEDS ORDERED: ONDANSETRON 4 MG/2 ML (SDV) Z0FRAN ONE (15:26)
[2017-11-21] MEDS ORDERED: proPOfol 200 MG/20 ML (DIPRIVAN) VIAL IV ONE (15:26)
[2017-11-21] MEDS ORDERED: MIDAZOLAM 2 MG/2 ML (VERSED) VIAL ONE (15:27)
[2017-11-21] MEDS ORDERED: fentaNYL INJECTION 100 MCG/2 ML AMP ONE ×2 (15:27)
[2017-11-21] MEDS ORDERED: CARBOPROST (HEMABATE) 250 MCG/ML AMP IM ONE (15:30)
[2017-11-21] MEDS ORDERED: ONDANSETRON 4 MG/2 ML (SDV) Z0FRAN IVP PRN ×2 (16:00→16:15)
[2017-11-21] MEDS ORDERED: morphine INJ 10 MG/ML 1ML (SYR OR VIAL) IVP PRN (16:00)
[2017-11-21] MEDS ORDERED: fentaNYL INJECTION 100 MCG/2 ML AMP IVP PRN (16:00)
--- NOTE | 2017-11-21 16:19 | Progress Note-Post Operative ---
Post-Operative Progess Note Surgeon (s)/Mirror Framer (s) Surgeon TOMMIE BECKFORD DO Mirror Framer: n/a Pre-Operative Diagnosis INCOMPLETE AB WITH VAGINAL HEMORRHAGE AND SYMPTOMATIC ANEMIA Post-Operative Diagnosis Same Procedure & Operative Findings Date of Procedure 11/21/17 Procedure Performed/Findings Procedure: Suction D&C Fluids: 2200 mL's of lactate ringer solution Urine output: 50 ML's clear urine drained via straight catheterization prior to procedure Indications for procedure: This 27-year-old female presented to my office today with acute episode of vaginal bleeding. She reports it started last night however did not want to go the emergency room and she did not feel it was an emergency at that point however she continued to bleed steadily going through more than a pad an hour throughout the day this morning. In the office at the time of my evaluation her hemoglobin was found to be 12, the patient reported that there was no issue to be because she had not had intercourse since September and her IUD it fell out at that time. However after being evaluated initially in the office she shortly returned back with more heavy bleeding. At that point was diagnosed ultrasound was performed bedside which showed no fetus but what appeared to be placental tissue retained in the endometrial canal. The patient was becoming lightheaded and dizzy so she was emergently escorted by myself down to the operating room to proceed with suction D&C. In this transit the patient was informed about what was occurring and consent was obtained and all of her questions were answered. Operative report in detail: Once in the operating room general anesthesia was found to be adequate she's placed in the dorsal lithotomy position prepped and draped in normal sterile fashion. She's first examined under anesthesia the uterus is approximately 8- 10 week size. The cervix is then grasped with a long Allis clamp after a weighted speculum was placed within the patient's vagina. The cervix is already mildly dilated allowing me to place a 8 mm rigid suction curette within the endometrial canal, and a [place] suction devices attached and activated to a pressure of 50 mmHg. At which point I methodically clear on several different passes the endometrial cavity of all tissue and debris which is collected and sent to pathology is products of conception. After this is done I perform a gentle sharp curettage of the endometrial cavity. There is still significant amounts of bleeding noted 0.2 mg of Methergine is given IM, followed by 250 g of Hemabate IM. Bleeding slows slightly to paracervical sutures are placed using 2-0 Vicryl suture in a krwxet-[id number] fashion. After this is done bleeding significantly slows down. All insurance removed from the patient's vagina and the patient tolerated the procedure well and secondary cover area in stable condition lap and sponge count is correct at the end of the procedure and instrument count was correct as well. Anesthesia Type GETA Estimated Blood Loss Estimated blood loss (mL): 800 Specimens/Packing Specimens Removed Products of conception TOMMIE BECKFORD DO Nov 21, 2017 16:19
--- NOTE | 2017-11-21 16:24 | Anesthesia-General Post-Op ---
General Patient Condition Mental Status/LOC: Same as Preop Cardiovascular: Satisfactory Nausea/Vomiting: Absent Respiratory: Satisfactory Pain: Controlled Complications: Absent Post Op Complications Complications None Follow Up Care/Instructions Patient Instructions None needed. Anesthesia/Patient Condition Patient Condition Patient is doing well, no complaints, stable vital signs, no apparent adverse anesthesia problems. MARJORIE PINA DO Nov 21, 2017 16:24
[2017-11-21 16:41] VITALS: BP 119/81
[2017-11-21] MEDS: HYDROcodone/APAP 5 MG/325 MG (LORTAB) TAB PO PRN ×2 (16:56→20:59)
[2017-11-21 19:25] VITALS: BP 112/66
[2017-11-21] MEDS: D5 LR IV SOLUTION 1,000 ML IV SCH (20:58)
[2017-11-21 21:45] LABS: HEMOGLOBIN 10.5 G/DL (11.5-16.0); MEAN PLATELET VOLUME 9.5 FL (7.4-10.4); RED BLOOD COUNT 3.35 10^6/uL (4.35-5.85); RED CELL DISTRIBUTION WIDTH 11.8 % (10.0-14.5)
[2017-11-21] MEDS: KETOROLAC 30 MG/ML VIAL IVP SCH (21:53)
[2017-11-22] MEDS ORDERED: HYDROcodone/APAP 5 MG/325 MG (LORTAB) TAB PO PRN (00:15)
[2017-11-22 03:25] VITALS: BP 101/64
[2017-11-22] MEDS: KETOROLAC 30 MG/ML VIAL IVP SCH (03:25)
[2017-11-22] MEDS: D5 LR IV SOLUTION 1,000 ML IV SCH (04:56)
[2017-11-22 05:42] LABS: BASOPHILS % (AUTO) 0 % (0-10); EOSINOPHILS % (AUTO) 0 % (0-10); HEMATOCRIT 27 % (35-52); HEMOGLOBIN 8.9 G/DL (11.5-16.0); LYMPHOCYTES # (AUTO) 0.6 X 10^3 (1.0-4.0); LYMPHOCYTES % (AUTO) 8 % (12-44); MEAN CORPUSCULAR HEMOGLOBIN 31 PG (25-34); MEAN CORPUSCULAR HGB CONC 33 G/DL (32-36); MEAN CORPUSCULAR VOLUME 93 FL (80-99); MEAN PLATELET VOLUME 8.9 FL (7.4-10.4); MONOCYTES # (AUTO) 0.5 X 10^3 (0.0-1.0); MONOCYTES % (AUTO) 8 % (0-12); NEUTROPHILS # (AUTO) 5.6 X 10^3 (1.8-7.8); NEUTROPHILS % (AUTO) 84 % (42-75); PLATELET COUNT 189 10^3/uL (130-400); RED BLOOD COUNT 2.87 10^6/uL (4.35-5.85); RED CELL DISTRIBUTION WIDTH 11.7 % (10.0-14.5); WHITE BLOOD COUNT 6.7 10^3/uL (4.3-11.0)
--- NOTE | 2017-11-22 08:25 | Discharge Inst-Women's Service ---
Discharge Inst-Women's Serv Depart Medication/Instructions New, Converted or Re-Newed RX: RX on Chart Consults/Follow Up Additional Follow Up: Yes Orders/Referrals Dr. Beckford in 3 weeks Activity Activity: Activity as Tolerated Driving Instructions: No Driving for 1 Week NO SMOKING: NO SMOKING Nothing Inside Vagina: No Douching, No [place], No Tampons Diet Discharge Diet: No Restrictions Symptoms to Report to : Bleeding Excessive, Pain Increased, Fever Over 101 Degrees F, Vaginal Bleeding Increase, Questions/Concerns For Any Problems or Questions: Contact Your Physician Skin/Wound Care Bathing Instructions: Shower (x 2 weeks) TOMMIE BECKFORD DO Nov 22, 2017 08:25
[2017-11-22] MEDS ORDERED: FERR325T18 PO (08:28)
[2017-11-22] MEDS ORDERED: IBUP-1773 PO (08:28)
[2017-11-22] MEDS ORDERED: HYDR-757 PO (08:28)
--- NOTE | 2017-11-22 08:31 | Progress Note-Standard ---
Standard Progress Note Progress Notes/Assess & Plan Date Seen by Provider: Nov 22, 2017 Time Seen by Provider: 08:15 Progress/Assessment & Plan Patient reports doing well this am. Reports good pain control, and bleeding is very light. She denies lightheadedness/dizziness thus far while ambulating, but has not yet gotten up this AM. Vital Sign - Last 24 Hours 11/21/17 11/21/17 11/21/17 11/21/17 14:59 16:41 19:25 21:35 Temp 99.8 99.9 98.3 98.5 Pulse 128 118 94 95 Resp 18 18 B/P (MAP) 125/89 (101) 119/81 (94) 112/66 (81) Pulse Ox 100 93 98 97 O2 Delivery Room Air Room Air 11/21/17 11/22/17 22:18 03:25 Temp 98.0 Pulse 68 Resp 16 B/P (MAP) 101/64 (76) Pulse Ox 98 O2 Delivery Room Air Intake and Output 11/21/17 11/21/17 11/22/17 15:00 23:00 07:00 Intake Total 1000 ml 2400 ml 1700 ml Output Total 1000 ml 1800 ml Balance 1000 ml 1400 ml -100 ml Laboratory Tests Test 11/21/17 14:32 11/21/17 21:25 11/22/17 05:25 Range/Units White Blood Count 9.8 10.0 6.7 4.3-11.0 10^3/uL Red Blood Count 4.08 L 3.35 L 2.87 L 4.35-5.85 10^6/uL Hemoglobin 12.9 10.5 L 8.9 L 11.5-16.0 G/DL Hematocrit 38 31 L 27 L 35-52 % Mean Corpuscular Volume 92 93 93 80-99 FL Mean Corpuscular Hemoglobin 32 31 31 25-34 PG Mean Corpuscular Hemoglobin Concent 34 34 33 32-36 G/DL Red Cell Distribution Width 11.8 11.8 11.7 10.0-14.5 % Platelet Count 196 186 189 130-400 10^3/uL Mean Platelet Volume 9.3 9.5 8.9 7.4-10.4 FL Neutrophils (%) (Auto) 91 H 84 H 42-75 % Lymphocytes (%) (Auto) 4 L 8 L 12-44 % Monocytes (%) (Auto) 5 8 0-12 % Eosinophils (%) (Auto) 0 0 0-10 % Basophils (%) (Auto) 0 0 0-10 % Neutrophils # (Auto) 8.9 H 5.6 1.8-7.8 X 10^3 Lymphocytes # (Auto) 0.4 L 0.6 L 1.0-4.0 X 10^3 Monocytes # (Auto) 0.5 0.5 0.0-1.0 X 10^3 Eosinophils # (Auto) 0.0 0.0 0.0-0.3 10^3/uL Basophils # (Auto) 0.0 0.0 0.0-0.1 10^3/uL Neutrophils % (Manual) 82 % Lymphocytes % (Manual) 5 % Monocytes % (Manual) 3 % Eosinophils % (Manual) 0 % Basophils % (Manual) 0 % Band Neutrophils 10 % Blood Morphology Comment NORMAL Prothrombin Time 14.6 12.2-14.7 SEC INR Comment 1.1 0.8-1.4 Human Chorionic Gonadotropin, Quant 68149 H <5 MIU/ML Diagnosis: s/p d and c for incomplete ab acute blood loss anemia P: Bleeding stable, replacing iron and plan for dc this am Post d and c precautions reviewed. Continue pain meds as needed at home. TOMMIE BECKFORD DO Nov 22, 2017 8:31 am
[2017-11-22 08:45] VITALS: BP 106/59
[2017-11-22 10:15] VITALS: BP 106/59
--- OUTSIDE RECORDS SUMMARY | 2017-11-23 09:50 | XMS REPORT | Continuity of Care Document ---
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 [facility] Arthralgia of temporomandibular joint 12/24/2014 [facility] Unspecified essential hypertension 12/24/2014 [facility] Medications Medication Details Route Status Patient Instructions Ordering Provider Order Date Source Metoprolol Active [facility] Methocarbamol 750 MG Oral Tablet [Robaxin] =750 mg, 1 tab, PO, BID, X 14 Days, # 28 tab, 2 Refill(s) Inactive [facility] naproxen sodium 550 mg oral tablet =550 mg, 1 tab, PO, BID, PRN for pain, X 30 Days, # 60 tab, 1 Refill(s) Inactive [facility] Diazepam 5 MG Oral Tablet [Valium] =5 mg, 1 tab, PO, QHS, X 7 Days, # 7 tab, 0 Refill(s) Inactive [facility] meloxicam 7.5 MG Oral Tablet [Mobic] =7.5 mg, 1 tab, PO, Daily, # 90 tab, 0 Refill(s) Active [facility] Allergies, Adverse Reactions, Alerts Substance Category Reaction Severity Reaction type Status Date Reported Comments Source penicillins Assertion Drug allergy [facility] Immunizations Results Vital Signs Vital Sign Value Date Comments Source Cuff Size Adult Regular Cuff
(01/16/15 10:51 AM) 01/16/2015 [facility] Heart Rate 108 bpm 2014 [facility] Temperature Oral 97.3 [degF] 01/16/2015 [facility] Resp. Rate 16 BRMIN 2014 [facility] BP Site Right Arm
(01/16/15 10:51 AM) 01/16/2015 [facility] Oxygen Saturation 100 % 01/16 [facility] Systolic BP 128 mmHg 2014 [facility] Diastolic BP 86 mmHg 2014 [facility] O2 Source Room Air
(01/16/15 10:51 AM) 01/16/2015 [facility] Cuff Size Adult Regular Cuff
(01/01/15 1:00 PM) 01/01/2015 [facility] Heart Rate 111 bpm 2014 [facility] Resp. Rate 20 BRMIN 2014 [facility] Systolic BP 133 mmHg 2014 [facility] Diastolic BP 88 mmHg 2014 [facility] BP Site Right Arm
(01/01/15 1:00 PM) 01/01/2015 [facility] BP Site Right Arm
(12/19/14 1:29 PM) 12/19/2014 [facility] Cuff Size Adult Regular Cuff
(12/19/14 1:29 PM) 12/19/2014 [facility] Systolic BP 124 mmHg 2014 [facility] Diastolic BP 83 mmHg 2014 [facility] Resp. Rate 16 BRMIN 2014 [facility] Heart Rate 92 bpm 12/19/2014 [facility] Temperature Oral 98.7 [degF] 12/19/2014 [facility] Encounters Location Location Details Encounter Type Encounter Number Reason For Visit Attending Provider ADM Date DC Date Status Source [facility] [id number] Shashi Potter 12/19/2014 12/20/2014 [facility] [id number] Kristian Quijano 01/01/2015 01/02/2015 [facility] [id number] Kristian [facility] 01/16/2015 01/17/2015 [facility] Procedures Plan of Care Social History Assessment and Plan Assessment and Plan Date Source Title:Ambulatory Patient Education Author:Cesar Garcia [facility]. [facility] [address] [place] [address] Visit Information/Informacion de Visita Name/Nombre: QUIQUEEMMANUELSUSAN HICKMANSAY [...] appointment within two weeks, please call for [facility] or for [place]. Future Orders Placed Today/Ordenes de Doctor Patient Follow-up Information/Informacion de seguimiento del paciente Your Upcoming Appointments/Nicky proximas citas Please bring all home medications to every visit with us at [facility]. Your safety and education around medications is our goal. (Prescription , non prescription and herbal supplements) Date Time Location Reason Provider No Appointments found Additional Patient Information/Informacion adicional del paciente: Blood Pressure: 128/86 mmHg Patient Instructions/Instrucciones para el Paciente All smokers are encouraged to stop smoking. If you would like help, talk to your doctor or call [facility] [place] [facility] at 5-784-TOQC-NOW (5-385-639- 2680). If you have thoughts about committing suicide or otherwise hurting yourself, please call 911 or call Crisis Line at . Prescription leaflets: Take Charge of Your Health with VoxeetFAMOCO Sign up today for Seter[employer] CommunicationsSoundvamp for access to your health records 27/02. simplifyMD allows you to: Request an appointment Check your lab results Communicate with your providers and care team See provider notes from your visit View immunization records View current medication Sign up Today! Ask your healthcare provider or a [facility] associate for help, or email [facility] [email or web address]. [email or web address] 01/21/2015 [facility] * Title:Ambulatory Patient Education Author:Cesar Garcia Date:01/16/15 [facility]. [facility] [address] [place] [address] Visit Information/Informacion de Visita Name/Nombre: MELY SMART [...] appointment within two weeks, please call [phone] for [facility] or for [place]. Future Orders Placed Today/Ordenes de Doctor Patient Follow-up Information/Informacion de seguimiento del paciente Your Upcoming Appointments/Nicky proximas citas Please bring all home medications to every visit with us at [facility]. Your safety and education around medications is our goal. (Prescription , non prescription and herbal supplements) Date Time Location Reason Provider No Appointments found Additional Patient Information/Informacion adicional del paciente: Blood Pressure: 128/86 mmHg Patient Instructions/Instrucciones para el Paciente All smokers are encouraged to stop smoking. If you would like help, talk to your doctor or call [facility] [place] [facility] at 8-704-EZHVNOW (2-459-927- 2251). If you have thoughts about committing suicide or otherwise hurting yourself, please call 911 or call Crisis Line at . Prescription leaflets: Take Charge of Your Health with simplifyMD Sign up today for [employer]Koa for access to your health records 27/02. simplifyMD allows you to: Request an appointment Check your lab results Communicate with your providers and care team See provider notes from your visit View immunization records View current medication Sign up Today! Ask your healthcare provider or a [facility] associate for help, or email Green [facility] [email or web address]. [email or web address] 01/17/2015 [facility] * Title:Ambulatory Patient Education Author:Kennedy Robbins Date:01/01/15 [facility]. [facility] [address] [place] [id number] Visit Information/Informacion de Visita Name/Nombre: MELY SMART [...] appointment within two weeks, please call for [facility] or for [place]. Future Orders Placed Today/Ordenes de Doctor Order Name Details Ordering Provider Return to Clinic Appointment Request Requested Start Date/Time: 01/01/15 14:19: 00 RTC Appointment Request: 2 Weeks Reason for Appt: TMJ Special Instructions: f/u Kennedy Robbins Patient Follow-up Information/Informacion de seguimiento del paciente Your Upcoming Appointments/Nicky proximas citas Please bring all home medications to every visit with us at [facility]. Your safety and education around medications is our goal. (Prescription , non prescription and herbal supplements) Date Time Location Reason Provider No Appointments found Additional Patient Information/Informacion adicional del paciente: Blood Pressure: 133/88 mmHg Patient Instructions/Instrucciones para el Paciente All smokers are encouraged to stop smoking. If you would like help, talk to your doctor or call [facility] [place] [facility] at 1-518-SCKM-NOW (2-408-274- 4437). If you have thoughts about committing suicide or otherwise hurting yourself, please call 601 or call Crisis Line at . Prescription leaflets: Take Charge of Your Health with simplifyMD Sign up today for iKoa for access to your health records 27/02. simplifyMD allows you to: Request an appointment Check your lab results Communicate with your providers and care team See provider notes from your visit View immunization records View current medication Sign up Today! Ask your healthcare provider or a [facility] associate for help, or email [email or web address]. [email or web address] 01/06/2015 [facility] * Title:Ambulatory Patient Education Author:Kennedy Robbins Date:01/01/15 [facility]. [facility] [address] [place] [address] Visit Information/Informacion de Visita Name/Nombre: MELY SMART [...] appointment within two weeks, please call for [facility] or for [place]. Future Orders Placed Today/Ordenes de Doctor Order Name Details Ordering Provider Return to Clinic Appointment Request Requested Start Date/Time: 01/01/15 14:19: 00 RTC Appointment Request: 2 Weeks Reason for Appt: TMJ Special Instructions: f/u Kennedy Robbins Patient Follow-up Information/Informacion de seguimiento del paciente Your Upcoming Appointments/Nicky proximas citas Please bring all home medications to every visit with us at [facility]. Your safety and education around medications is our goal. (Prescription , non prescription and herbal supplements) Date Time Location Reason Provider No Appointments found Additional Patient Information/Informacion adicional del paciente: Blood Pressure: 133/88 mmHg Patient Instructions/Instrucciones para el Paciente All smokers are encouraged to stop smoking. If you would like help, talk to your doctor or call [facility] [place] [facility] at 7-833-RYSNNOW (4-975-232- 2953). If you have thoughts about committing suicide or otherwise hurting yourself, please call 911 or call Crisis Line at . Prescription leaflets: Take Charge of Your Health with simplifyMD Sign up today for S[employer] CommunicationsSoundvamp for access to your health records 27/02. VoxeetealRevver allows you to: Request an appointment Check your lab results Communicate with your providers and care team See provider notes from your visit View immunization records View current medication Sign up Today! Ask your healthcare provider or a [facility] associate for help, or email [facility] [email or web address]. [email or web address] new [email or web address] [email or web address] 01/02/2015 [facility] * Title:Ambulatory Patient Education Author:Kennedy Robbins Date:12/19/14 [facility]. [address] [address] Visit Information/Informacion de Visita Name/Nombre: MELY SMART [...] appointment within two weeks, please call for [facility] or for [place]. Future Orders Placed Today/Ordenes de Doctor Order [...] medications to every visit with us at [facility]. Your safety and education around medications is our goal. (Prescription , non prescription and herbal supplements) Date Time Location Reason Provider No Appointments found Additional Patient Information/Informacion adicional del paciente: Blood Pressure: 124/83 mmHg Patient Instructions/Instrucciones para el Paciente All smokers are encouraged to stop smoking. If you would like help, talk to your doctor or call [facility] [place] [facility] at 7-804-SGBBNOW (0-319-105- 8224). If you have thoughts about committing suicide or otherwise hurting yourself, please call 911 or call Crisis Line at . Prescription leaflets: Take Charge of Your Health with Green Man GamingLovelace Medical CenterSoundvamp Sign up today for Seter[employer] CommunicationsSoundvamp for access to your health records 27/02. VoxeetSoundvamp allows you to: Request an appointment Check your lab results Communicate with your providers and care team See provider notes from your visit View immunization records View current medication Sign up Today! Ask your healthcare provider or a [facility] associate for help, or email [facility] [email or web address]. [email or web address] 12/24/2014 [facility] * Title:Ambulatory Patient Education Author:Kennedy Robbins Date:12/19/14 [facility]. [facility] [address] [place] [address] Visit Information/Informacion de Visita Name/Nombre: MELY SMART [...] appointment within two weeks, please call for [facility] or for [place]. Future Orders Placed Today/Ordenes de Doctor Order [...] medications to every visit with us at [facility]. Your safety and education around medications is our goal. (Prescription , non prescription and herbal supplements) Date Time Location Reason Provider No Appointments found Additional Patient Information/Informacion adicional del paciente: Blood Pressure: 124/83 mmHg Patient Instructions/Instrucciones para el Paciente All smokers are encouraged to stop smoking. If you would like help, talk to your doctor or call [facility] [place] [facility]uit[facility] at 5-699-IJQANOW (3-638-845- 3809). If you have thoughts about committing suicide or otherwise hurting yourself, please call 911 or call Crisis Line at . Prescription leaflets: Take Charge of Your Health with Green Man GamingLovelace Medical CenterFAMOCO Sign up today for iKoa for access to your health records 27/02. simplifyMD allows you to: Request an appointment Check your lab results Communicate with your providers and care team See provider notes from your visit View immunization records View current medication Sign up Today! Ask your healthcare provider or a [facility] associate for help, or email [facility] [email or web address]. [email or web address] 12/20/2014 [facility] Family History Advance Directives Functional Status
--- OUTSIDE RECORDS SUMMARY | 2017-11-23 09:51 | XMS REPORT | Continuity of Care Document ---
Author Author [facility] Organization [facility] Address Unknown Phone Unavailable Allergies Active Description Code Type Severity Reaction Onset Reported/Identified Relationship to Patient Clinical Status Yes Penicillins [id number] Drug Allergy Mild RASH, CAN TAKE 05/07/2008 [...] ULICES DDS, ASHLEY Dumont Ot 524.60 01/21/2015 ULIECS DDS, ASHLEY Dumont Ot 719.48 04/14/2015 Ot [...] O47.9 FALSE LABOR, UNSPECIFIED 09/30/2015 ZAHRA LOZANO, MEENA Costa Ot Z3A.00 WEEKS OF GESTATION OF [...] 08/30/2011 [id number] REPAIR VULVA, EXTERNAL APPROACH 10/16/2015 [id number] DELIVERY OF PRODUCTS OF CONCEPTION, EXTE 10/16/2015 Results Test Result Range Complete blood count (CBC) with automated white blood cell (WBC) differential - 11/21/17 14:32 Blood leukocytes automated count (number/volume) 9.8 10*3/uL 4.3-11.0 Blood erythrocytes automated count (number/volume) 4.08 10*6/uL 4.35-5.85 Venous blood hemoglobin measurement (mass/volume) 12.9 g/dL 11.5-16.0 Blood hematocrit (volume fraction) 38 % 35-52 Automated erythrocyte mean corpuscular volume 92 [foz_us] 80-99 Automated erythrocyte mean corpuscular hemoglobin (mass per erythrocyte) 32 pg 25-34 Automated erythrocyte mean corpuscular hemoglobin concentration measurement ( mass/volume) 34 g/dL 32-36 Automated erythrocyte distribution width ratio 11.8 % 10.0-14.5 Automated blood platelet count (count/volume) 196 10*3/uL 130-400 Automated blood platelet mean volume measurement 9.3 [foz_us] 7.4-10.4 Automated blood neutrophils/100 leukocytes 91 % 42-75 Automated blood lymphocytes/100 leukocytes 4 % 12-44 Blood monocytes/100 leukocytes 5 % 0-12 Automated blood eosinophils/100 leukocytes 0 % 0-10 Automated blood basophils/100 leukocytes 0 % 0-10 Blood neutrophils automated count (number/volume) 8.9 10*3 1.8-7.8 Blood lymphocytes automated count (number/volume) 0.4 10*3 1.0-4.0 Blood monocytes automated count (number/volume) 0.5 10*3 0.0-1.0 Automated eosinophil count 0.0 10*3/uL 0.0-0.3 Automated blood basophil count (count/volume) 0.0 10*3/uL 0.0-0.1 PT panel in platelet poor plasma by coagulation assay - 11/21/17 14:32 Prothrombin time (PT) in platelet poor plasma by coagulation assay 14.6 s 12.2-14.7 INR in platelet poor plasma or blood by coagulation assay 1.1 0.8-1.4 Blood manual differential performed detection - 11/21/17 14:32 Blood monocytes/100 leukocytes 3 % NRG Manual blood segmented neutrophils/100 leukocytes 82 % NRG Blood band neutrophils/100 leukocytes 10 % NRG Manual blood lymphocytes/100 leukocytes 5 % NRG Manual eosinophils/100 leukocytes in nose 0 % NRG Manual blood basophils/100 leukocytes 0 % NRG Blood erythrocyte morphology finding identification NORMAL NRG Blood type T Indirect antibody screen panel - 11/21/17 14:32 ABO+Rh group AP NRG Transfusion band number [id number] NRG Blood group antibody screen NEGATIVE NRG Serum or plasma choriogonadotropin measurement (units/volume) - 11/21/17 14:32 Serum or plasma choriogonadotropin measurement (units/volume) 30959 m[iU]/mL <5 Automated blood complete blood count (hemogram) panel - 11/21/17 21:25 Blood leukocytes automated count (number/volume) 10.0 10*3/uL 4.3-11.0 Blood erythrocytes automated count (number/volume) 3.35 10*6/uL 4.35-5.85 Venous blood hemoglobin measurement (mass/volume) 10.5 g/dL 11.5-16.0 Blood hematocrit (volume fraction) 31 % 35-52 Automated erythrocyte mean corpuscular volume 93 [foz_us] 80-99 Automated erythrocyte mean corpuscular hemoglobin (mass per erythrocyte) 31 pg 25-34 Automated erythrocyte mean corpuscular hemoglobin concentration measurement ( mass/volume) 34 g/dL 32-36 Automated erythrocyte distribution width ratio 11.8 % 10.0-14.5 Automated blood platelet count (count/volume) 186 10*3/uL 130-400 Automated blood platelet mean volume measurement 9.5 [foz_us] 7.4-10.4 Complete blood count (CBC) with automated white blood cell (WBC) differential - 11/22/17 05:25 Blood leukocytes automated count (number/volume) 6.7 10*3/uL 4.3-11.0 Blood erythrocytes automated count (number/volume) 2.87 10*6/uL 4.35-5.85 Venous blood hemoglobin measurement (mass/volume) 8.9 g/dL 11.5-16.0 Blood hematocrit (volume fraction) 27 % 35-52 Automated erythrocyte mean corpuscular volume 93 [foz_us] 80-99 Automated erythrocyte mean corpuscular hemoglobin (mass per erythrocyte) 31 pg 25-34 Automated erythrocyte mean corpuscular hemoglobin concentration measurement ( mass/volume) 33 g/dL 32-36 Automated erythrocyte distribution width ratio 11.7 % 10.0-14.5 Automated blood platelet count (count/volume) 189 10*3/uL 130-400 Automated blood platelet mean volume measurement 8.9 [foz_us] 7.4-10.4 Automated blood neutrophils/100 leukocytes 84 % 42-75 Automated blood lymphocytes/100 leukocytes 8 % 12-44 Blood monocytes/100 leukocytes 8 % 0-12 Automated blood eosinophils/100 leukocytes 0 % 0-10 Automated blood basophils/100 leukocytes 0 % 0-10 Blood neutrophils automated count (number/volume) 5.6 10*3 1.8-7.8 Blood lymphocytes automated count (number/volume) 0.6 10*3 1.0-4.0 Blood monocytes automated count (number/volume) 0.5 10*3 0.0-1.0 Automated eosinophil count 0.0 10*3/uL 0.0-0.3 Automated blood basophil count (count/volume) 0.0 10*3/uL 0.0-0.1 Encounters ACCT No. Visit Date/Time Discharge Status Pt. Type Provider Facility Loc./Unit Complaint [id number] 02/02/2017 10:20:00 02/02/2017 23:59:59 CLS Outpatient TOMMIE BECKFORD DO [facility] RAD PELVIC PAIN IN FEMALE R10.2,IUD IN PLACE Z97.5 [id number] 01/09/2017 12:12:00 01/09/2017 23:59:59 CLS Outpatient MELVIN OWENS DO [facility] LAB Z32.01 [id number] 03/04/2016 12:15:00 03/04/2016 15:49:00 DIS Emergency ASHLEY LOZANO, BART Wright [facility] ER ELEVATED BP/DIZZY/SOA [id number] 11/30/2015 13:58:00 11/30/2015 23:59:59 CLS Outpatient TOMMIE BECKFORD DO [facility] RAD BACK PAIN [id number] 10/15/2015 07:30:00 10/18/2015 12:05:00 DIS Inpatient TOMMIE BECKFORD DO [facility] LDRP BLEEDING,INVERSION [id number] 09/30/2015 13:19:00 09/30/2015 15:30:00 DIS Outpatient ZAHRA LOZANO, MEENA Costa [facility] WSo CRAMPING [id number] 04/14/2015 08:38:00 04/14/2015 11:34:00 DIS Emergency JENNI LOZANO, AMANUEL Buckner [facility] ER VISION CHANGE/LEFT ARM NUMBNESS [id number] 12/30/2014 13:55:00 12/30/2014 23:59:59 CLS Outpatient ASHLEY ELENA DDS [facility] RAD ARTHRITIS [id number] 11/21/2017 16:25:00 Document Registration [id number] 11/05/2012 11:37:00 Document Registration [id number] 05/14/2012 08:02:00 Document Registration [id number] 04/25/2012 09:22:00 Document Registration [id number] 08/29/2011 12:56:00 Document Registration [id number] 08/18/2011 16:00:00 Document Registration [id number] 08/16/2011 15:20:00 Document Registration [id number] 07/28/2011 13:32:00 Document Registration [id number] 07/15/2011 20:03:00 Document Registration [id number] 05/03/2011 12:51:00 Document Registration [id number] 01/13/2011 11:10:00 Document Registration [id number] 02/03/2010 19:10:00 Document Registration [id number] 08/26/2009 14:44:00 Document Registration [id number] 04/14/2015 08:39:05 ACT Document Registration
[2018-01-31] MEDS ORDERED: FERR325T18 PO (07:23)
[2018-02-15] MEDS ORDERED: DOCU100C37 PO (07:25)
[2018-02-15] MEDS ORDERED: IBUP-844 PO (07:25)
[2018-02-15] MEDS ORDERED: SIME80TA16 PO (07:25)
[2018-02-15] MEDS ORDERED: HYDR-34 PO (07:25)
== END 2017-11-22 10:15 | disposition home or self-care (01) ==
LOC: SDC 14:27 → UNDOADMOB 14:27 → WS 14:27 → UNDODISOB 11-22 10:15 → SDC 11-22 10:15 → EDSTATUS 11-23 09:45
PROVIDERS: ATTEND Obstetrics & Gynecology
DX: O03.1 Delayed or excessive hemorrhage following incomplete spontaneous abortion (principal); D62 Acute posthemorrhagic anemia; F32.9 Major depressive disorder, single episode, unspecified; Z79.899 Other long term (current) drug therapy
CPT/HCPCS: 36415; 84702; 85007; 85025; 85027; 85610; 86850; 86900; 86901; 88305; 94664

== ENCOUNTER → 2017-12-14 | Outpatient (CLI) | payer BC ==
[~2017-12-14] MED LIST changes: +ACHD5005 PO; +FERR325T18 PO; +HYDR-757 PO
--- NOTE | 2017-12-14 13:19 | Diagnostic Imaging Report ---
Indication: Chronic pelvic pain Exam: Transabdominal and endovaginal pelvic sonogram were performed. Findings: The uterus measures 7.8 x 5.0 x 4.9 cm. Endometrium is 7 mm. The myometrium and endometrium appear normal. The ovaries appear normal. There is no intraperitoneal free fluid. Impression: Negative pelvic sonogram. Dictated by: Dictated on workstation # [id number]
== END ==
LOC: RAD 12:08
PROVIDERS: ATTEND Obstetrics & Gynecology
DX: R10.2 Pelvic and perineal pain (principal)
CPT/HCPCS: 76830; 76856

== ENCOUNTER 2018-01-10 05:30 | Outpatient (CLI) | payer BC ==
[~2018-01-10] VITALS: Ht 160 cm; Wt 56.7 kg
[~2018-01-10 05:30] MED LIST changes: -ACHD5005 PO
[2018-01-18] MEDS ORDERED: IBUP-1773 PO (09:03)
[2018-01-18] MEDS ORDERED: ACHD5005 PO (09:03)
== END 2018-01-10 16:01 ==
LOC: PREOP 05:30
PROVIDERS: ATTEND Obstetrics & Gynecology
DX: Z01.818 Encounter for other preprocedural examination (principal)

== ENCOUNTER 2018-01-18 07:47 | Day surgery (SDC) | payer BC ==
[~2018-01-18] VITALS: Ht 160 cm; Wt 56.7 kg
[2018-01-18 08:00] VITALS: BP 116/82
[2018-01-18] MEDS ORDERED: ceFAZolin INJECTION 1,000 MG in NS (IVPB) 50 ML IV ONE (08:00)
[2018-01-18] MEDS: LACTATED RINGERS 1,000 ML IV PRN ×2 (08:15→10:50)
[2018-01-18] MEDS ORDERED: BUPIVACAINE 0.25% 30 ML (SENSORCAINE) VIAL ONE (08:20)
[2018-01-18 08:23] LABS: BASOPHILS % (AUTO) 1 % (0-10); EOSINOPHILS # (AUTO) 0.1 10^3/uL (0.0-0.3); EOSINOPHILS % (AUTO) 2 % (0-10); HEMATOCRIT 39 % (35-52); HEMOGLOBIN 13.1 G/DL (11.5-16.0); LYMPHOCYTES # (AUTO) 1.3 X 10^3 (1.0-4.0); LYMPHOCYTES % (AUTO) 25 % (12-44); MEAN CORPUSCULAR HEMOGLOBIN 32 PG (25-34); MEAN CORPUSCULAR HGB CONC 34 G/DL (32-36); MEAN CORPUSCULAR VOLUME 95 FL (80-99); MEAN PLATELET VOLUME 9.3 FL (7.4-10.4); MONOCYTES # (AUTO) 0.4 X 10^3 (0.0-1.0); MONOCYTES % (AUTO) 7 % (0-12); NEUTROPHILS # (AUTO) 3.5 X 10^3 (1.8-7.8); NEUTROPHILS % (AUTO) 66 % (42-75); PLATELET COUNT 219 10^3/uL (130-400); RED BLOOD COUNT 4.09 10^6/uL (4.35-5.85); RED CELL DISTRIBUTION WIDTH 11.9 % (10.0-14.5); WHITE BLOOD COUNT 5.2 10^3/uL (4.3-11.0)
[2018-01-18] MEDS ORDERED: MIDAZOLAM 2 MG/2 ML (VERSED) VIAL ONE ×2 (08:52→11:21)
[2018-01-18] MEDS ORDERED: fentaNYL INJECTION 100 MCG/2 ML AMP ONE (08:52)
[2018-01-18] MEDS ORDERED: SEVOFLURANE (ULTANE) 15 ML INHAL SOLN ONE (08:52)
[2018-01-18] MEDS ORDERED: DEXAMETHASONE 10 MG/ML (DECADRON) 1 ML VIAL ONE (08:52)
[2018-01-18] MEDS ORDERED: proPOfol 200 MG/20 ML (DIPRIVAN) VIAL IV ONE (08:52)
[2018-01-18] MEDS ORDERED: HURRICAINE EXT TUBE (BENZOCAINE) ONE (08:52)
[2018-01-18] MEDS ORDERED: LIDOCAINE PF 2% 5 ML (XYLOCAINE) VIAL ONE (08:52)
[2018-01-18] MEDS ORDERED: LACTATED RINGERS 1,000 ML IV ONE (08:52)
[2018-01-18] MEDS ORDERED: ATRACURIUM 50 MG/5 ML (TRACRIUM) IV ONE ×2 (08:53→08:54)
[2018-01-18] MEDS ORDERED: KETOROLAC 30 MG/ML VIAL IVP ONE (09:00)
[2018-01-18] MEDS ORDERED: HYDROcodone/APAP 5 MG/325 MG (LORTAB) TAB PO PRN (09:00)
[2018-01-18] MEDS ORDERED: ONDANSETRON 4 MG/2 ML (SDV) Z0FRAN IVP PRN (09:00)
[2018-01-18] MEDS ORDERED: D5 LR IV SOLUTION 1,000 ML IV SCH (09:00)
--- NOTE | 2018-01-18 09:02 | Progress Note-Pre Operative ---
Pre-Operative Progress Note H&P Reviewed The H&P was reviewed, patient examined and no changes noted. Date Seen by Provider: Jan 18, 2018 Time Seen by Provider: 08:45 Date H&P Reviewed: Jan 18, 2018 Time H&P Reviewed: 08:45 Pre-Operative Diagnosis: CPP, Dyspareunia TOMMIE BECKFORD DO Jan 18, 2018 09:02
--- NOTE | 2018-01-18 09:02 | Discharge Inst-Women's Service ---
Discharge Inst-Women's Serv Depart Medication/Instructions New, Converted or Re-Newed RX: RX on Chart Consults/Follow Up Additional Follow Up: Yes Orders/Referrals Dr. Dinh in 2 weeks Activity Activity: Activity as Tolerated Driving Instructions: No Driving for 1 Week NO SMOKING: NO SMOKING Nothing Inside Vagina: No Douching, No [place], No Tampons Diet Discharge Diet: No Restrictions Symptoms to Report to : Bleeding Excessive, Pain Increased, Fever Over 101 Degrees F, Vaginal Bleeding Increase, Questions/Concerns For Any Problems or Questions: Contact Your Physician Skin/Wound Care Infection Signs and Symptoms: Increased Redness, Foul Odor of Wound, Increased Drainage, Skin Itchy or Has a Rash, Increased Swelling, Temperature Above 101 F Operative Area Clean and Dry: Keep Incision Clean/Dry Stitches/Liang/Dermabond: Dermabond, Care of Stitches Bathing Instructions: TOMMIE Guerrero DO Jan 18, 2018 09:02
[2018-01-18] MEDS ORDERED: IBUP-1773 PO (09:03)
[2018-01-18] MEDS ORDERED: ACHD5005 PO (09:03)
[2018-01-18] MEDS ORDERED: GLYCOPYRROLATE 0.2 MG/ML (ROBINUL) 2 ML VIAL ONE (09:46)
[2018-01-18] MEDS ORDERED: NEOSTIGMINE 1 MG/ML 5 ML SYRINGE ONE (09:46)
[2018-01-18] MEDS: ONDANSETRON 4 MG/2 ML (SDV) Z0FRAN IVP PRN ×2 (10:00→10:47)
[2018-01-18] MEDS ORDERED: MEPERIDINE (DEMEROL) INJ 50 MG/ML IVP PRN (10:00)
[2018-01-18] MEDS: morphine INJ 10 MG/ML 1ML (SYR OR VIAL) IVP PRN ×2 (10:15→10:20)
[2018-01-18] MEDS ORDERED: BUPIVACAINE 0.25% 30 ML (SENSORCAINE) VIAL INJ ONE (11:00)
[2018-01-18 11:05] VITALS: BP 113/78
[2018-01-18 11:35] VITALS: BP 113/79
[2018-01-18 12:05] VITALS: BP 114/80
[2018-01-18] MEDS ORDERED: HYDROcodone/APAP 5 MG/325 MG (LORTAB) TAB PO ONE (13:15)
[2018-01-18] MEDS ORDERED: HYDROmorphone 1 MG/ML (DILAUDID) 1 ML SYRINGE IV ONE (13:15)
--- NOTE | 2018-01-18 13:21 | Anesthesia-General Post-Op ---
General Patient Condition Mental Status/LOC: Same as Preop Cardiovascular: Satisfactory Nausea/Vomiting: Absent Respiratory: Satisfactory Pain: Controlled Complications: Absent Post Op Complications Complications None Follow Up Care/Instructions Patient Instructions None needed. Anesthesia/Patient Condition Patient Condition Patient is doing well, no complaints, stable vital signs, no apparent adverse anesthesia problems. No complications reported per nursing. D/C home per [facility] Criteria: Yes NENITA VELASQUEZ CRNA Jan 18, 2018 13:21
[2018-01-18 14:05] VITALS: BP 106/73
--- NOTE | 2018-01-18 15:46 | OPERATIVE REPORT ---
DATE OF SERVICE: PREOPERATIVE DIAGNOSES: 1. A 27-year-old female with chronic pelvic pain. 2. Dyspareunia. POSTOPERATIVE DIAGNOSES: 1. A 27-year-old female with chronic pelvic pain. 2. Dyspareunia. PROCEDURE: Operative laparoscopy with cauterization of endometriosis implants and risk reducing bilateral salpingectomy. SURGEON: Tommie Beckford DO SLATE ROOFER HELPER: LULA Lozada ANESTHESIA: General endotracheal. ESTIMATED BLOOD LOSS: Minimal. URINE OUTPUT: 100 mL clear at the end of the procedure. FLUIDS: 600 mL lactated Ringer's solution. FINDINGS: Peritoneal implants along the uterosacral ligament and ovarian fossa that appeared to be endometriosis. Grossly normal appearing bilateral ovaries and fallopian tubes. SPECIMEN SENT: Bilateral fallopian tubes. DESCRIPTION OF PROCEDURE: The patient was taken to the operating room where general anesthesia found to be adequate, placed in dorsal lithotomy position, prepped and draped in normal sterile fashion. Pimentel catheter was placed in sterile technique. Timeout was performed. A weighted speculum inserted into the patient's vagina. A ring retractor was used to visualize cervix grasped at 12 o'clock position using a long Allis clamp. I then gently sound the uterine cavity, which was found to be 8 cm. I placed a Kronner uterine manipulator within the uterine cavity without any difficulty deploying the balloon and removing all other instruments from the patient's vagina. I then performed a change of gloves. I took my attention to the abdomen where infraumbilically I infiltrated this area using 0.25% Marcaine and made a 5 mm incision and directed Veress needle through this incision until intraperitoneal placement was confirmed using a saline drop test. I then proceeded with insufflation using CO2 gas to a pressure of 5 mmHg was noted. I proceeded to max pressure of 15 mmHg, at which point I removed the Veress needle and introduced a 5 mm trocar and confirmed intraperitoneal placement using the laparoscope. Once I have laparoscopic access, I am able to briefly scan the abdominal pelvic anatomy, which shows no signs of injury upon entry. I then had the patient placed in deep steep Trendelenburg and made to visualize the wound. Findings demonstrated in my findings above. I then placed a second trocar site through suprapubically approximately [address] a 12 mm trocar through this incision. Once this was in place, I am able to take the fallopian tubes down using LigaSure bipolar cauterizing down the mesosalpinx and amputated away from its surrounding blood supply. Once fallopian tubes were taken out, they are removed through this larger 12 mm port. I then proceeded with ablating the endometriosis implants that I described in my findings above using a hook and cautery, after which there is no active bleeding noted from any of my dissection planes and then copiously irrigated the pelvis using normal saline. Once again there is no active bleeding noted from any of my dissection planes. I then released insufflation and removed the infraumbilical trocar under direct visualization of the laparoscope. There is no active bleeding noted from this plane. The suprapubic trocar was left in place to release insufflation, introduced 2 mL of 0.5% Marcaine for postoperative pain management and then removed this trocar as well. The fascia of the larger trocar site was closed using 0 Vicryl suture in interrupted fashion. The skin was then reapproximated at both trocar sites using 4-0 Monocryl in interrupted subcuticular stitches. Dermabond was applied to incision and bandage was placed over this. The patient tolerated the procedure well and sent to recovery in stable condition. Lap, sponge count correct at the end of procedure, instrument counts correct as well. Kronner uterine manipulator and Pimentel catheter was removed at the end of the procedure. Job ID: [id number] DocumentID: [id number] Dictated Date: 01/18/2018 10:25:18 [employer] Date: 01/18/2018 15:45:07 Dictated By: TOMMIE BECKFORD DO
== END 2018-01-18 14:10 | disposition home or self-care (01) ==
LOC: SDC 07:47
PROVIDERS: ATTEND Obstetrics & Gynecology
DX: R10.2 Pelvic and perineal pain (principal); N94.10 Unspecified dyspareunia; N80.3 Endometriosis of pelvic peritoneum; Z40.03 Encounter for prophylactic removal of fallopian tube(s)
CPT/HCPCS: 36415; 84703; 85025; 86850; 86900; 86901; 87081; 88302; 94664

== ENCOUNTER 2018-02-12 09:59 | Outpatient (CLI) | payer BC ==
[~2018-02-12] VITALS: Ht 160 cm; Wt 57.9 kg
[~2018-02-12 09:59] MED LIST changes: +ACHD5005 PO
[2018-02-12] MEDS ORDERED: SERT25TA5 PO (10:09)
[2018-02-12 10:18] VITALS: BP 124/84
[2018-02-12 10:58] LABS: BASOPHILS % (AUTO) 0 % (0-10); EOSINOPHILS # (AUTO) 0.1 10^3/uL (0.0-0.3); EOSINOPHILS % (AUTO) 1 % (0-10); HEMATOCRIT 41 % (35-52); HEMOGLOBIN 13.7 G/DL (11.5-16.0); LYMPHOCYTES # (AUTO) 1.3 X 10^3 (1.0-4.0); LYMPHOCYTES % (AUTO) 23 % (12-44); MEAN CORPUSCULAR HEMOGLOBIN 31 PG (25-34); MEAN CORPUSCULAR HGB CONC 34 G/DL (32-36); MEAN CORPUSCULAR VOLUME 93 FL (80-99); MEAN PLATELET VOLUME 9.5 FL (7.4-10.4); MONOCYTES # (AUTO) 0.3 X 10^3 (0.0-1.0); MONOCYTES % (AUTO) 5 % (0-12); NEUTROPHILS % (AUTO) 71 % (42-75); PLATELET COUNT 232 10^3/uL (130-400); RED BLOOD COUNT 4.39 10^6/uL (4.35-5.85); RED CELL DISTRIBUTION WIDTH 11.9 % (10.0-14.5); WHITE BLOOD COUNT 5.6 10^3/uL (4.3-11.0)
[2018-02-12 11:18] LABS: BUN/CREATININE RATIO 14; CALCIUM 9.8 MG/DL (8.5-10.1); CARBON DIOXIDE 23 MMOL/L (21-32); CHLORIDE 107 MMOL/L (98-107); CREATININE SERUM 0.76 MG/DL (0.60-1.30); GFR ESTIMATED > 60; GLUCOSE 92 MG/DL (70-105); POTASSIUM 4.1 MMOL/L (3.6-5.0); SODIUM 138 MMOL/L (135-145)
== END 2018-02-12 12:22 | disposition home or self-care (01) ==
LOC: PREOP 09:59
PROVIDERS: ATTEND Obstetrics & Gynecology
DX: Z01.812 Encounter for preprocedural laboratory examination (principal); Z11.2 Encounter for screening for other bacterial diseases; N92.0 Excessive and frequent menstruation with regular cycle; D50.0 Iron deficiency anemia secondary to blood loss (chronic)
CPT/HCPCS: 36415; 80048; 85025; 86850; 86900; 86901; 87081

== ENCOUNTER 2018-02-15 06:00 | Day surgery (SDC) | payer BC ==
[~2018-02-15] VITALS: Ht 160 cm; Wt 57.9 kg
[~2018-02-15 06:00] MED LIST changes: +SERT25TA5 PO
[2018-02-15] MEDS ORDERED: LACTATED RINGERS 1,000 ML IV SCH (06:14)
[2018-02-15] MEDS ORDERED: LACTATED RINGERS 1,000 ML IV PRN (06:14)
[2018-02-15] MEDS ORDERED: ceFAZolin INJECTION 1,000 MG in NS (IVPB) 50 ML IV ONE (06:15)
[2018-02-15] MEDS ORDERED: metroNIDAZOLE 500MG/100ML IVPB 100 ML IV ONE (06:15)
--- OUTSIDE RECORDS SUMMARY | 2018-02-15 06:24 | XMS REPORT | Continuity of Care Document ---
Author Author [facility] Organization [facility] Address Unknown Phone Unavailable Allergies Active Description Code Type Severity Reaction Onset Reported/Identified Relationship to Patient Clinical Status Yes Penicillins [id number] Drug Allergy Mild RASH, CAN TAKE 02/12/2018 Medications There is no data. Problems Date [...] Ot Z97.5 PRESENCE OF (INTRAUTERINE) CONTRACEPTIVE 02/17/2017 FENECH DO, TOMMIE S Ot M54.9 DORSALGIA, UNSPECIFIED 02/17/2017 TOMMIE BECKFORD DO S Ot R10.2 PELVIC AND PERINEAL PAIN 02/17/2017 SHAKEEL MCCLOUD TOMMIE S Ot Z97.5 PRESENCE OF (INTRAUTERINE) CONTRACEPTIVE 11/22/2017 SHAKEEL DO TOMMIE S Ot D62 ACUTE POSTHEMORRHAGIC ANEMIA 11/22/2017 SHAKEEL MCCLOUD, TOMMIE S Ot F32.9 MAJOR DEPRESSIVE DISORDER, SINGLE EPISOD 11/22/2017 SHAKEEL MCCLOUD TOMMIE S Ot O03.1 DELAYED OR EXCESSIVE HEMOR FOLLOWING INC 11/22/2017 SHAKEEL DO, TOMMIE S Ot Z79.899 OTHER FPC (CURRENT) DRUG THERAPY 11/23/2017 SHAKEEL DO, TOMMIE S Ot D62 ACUTE POSTHEMORRHAGIC ANEMIA 11/23/2017 SHAKEEL MCCLOUDTOMMIE S Ot F32.9 MAJOR DEPRESSIVE DISORDER, SINGLE EPISOD 11/23/2017 SHAKEEL MCCLOUD, TOMMIE S Ot O03.1 DELAYED OR EXCESSIVE HEMOR FOLLOWING INC 11/23/2017 SHAKEEL DOTOMMIE S Ot Z79.899 OTHER ELEVATOR REPAIRER (CURRENT) DRUG THERAPY 11/23/2017 SHAKEEL DO, TOMMIE S Ot D62 ACUTE POSTHEMORRHAGIC ANEMIA 11/23/2017 SHAKEEL DO, TOMMIE S Ot F32.9 MAJOR DEPRESSIVE DISORDER, SINGLE EPISOD 11/23/2017 CHAPARROECH DO, TOMMIE S Ot O03.1 DELAYED OR EXCESSIVE HEMOR FOLLOWING INC 11/23/2017 CHAPARROECH DO, TOMMIE S Ot Z79.899 OTHER ELEVATOR REPAIRER (CURRENT) DRUG THERAPY 11/27/2017 SHAKEEL DO TOMMIE S Ot D62 ACUTE POSTHEMORRHAGIC ANEMIA 11/27/2017 SHAKEEL DOTOMMIE S Ot F32.9 MAJOR DEPRESSIVE DISORDER, SINGLE EPISOD 11/27/2017 CHAPARROECH DO, TOMMIE S Ot O03.1 DELAYED OR EXCESSIVE HEMOR FOLLOWING INC 11/27/2017 CHAPARROECH DO, TOMMIE S Ot Z79.899 OTHER ELEVATOR REPAIRER (CURRENT) DRUG THERAPY 12/08/2017 SHAKEEL DO TOMMIE S Ot D62 ACUTE POSTHEMORRHAGIC ANEMIA 12/08/2017 CHAPARROECH DO, TOMMIE S Ot F32.9 MAJOR DEPRESSIVE DISORDER, SINGLE EPISOD 12/08/2017 CHAPARROECH DO, TOMMIE S Ot O03.1 DELAYED OR EXCESSIVE HEMOR FOLLOWING INC 12/08/2017 CHAPARROECH DO, TOMMIE S Ot Z79.899 OTHER ELEVATOR REPAIRER (CURRENT) DRUG THERAPY 12/15/2017 SHAKEEL DO, TOMMIE Harper Ot R10.2 PELVIC AND PERINEAL PAIN 12/15/2017 SHAKEEL DO, TOMMIE Harper Ot R10.2 PELVIC AND PERINEAL PAIN 12/20/2017 SHAKEEL DO, TOMMIE Harper Ot R10.2 PELVIC AND PERINEAL PAIN 12/28/2017 SHAKEEL DO, TOMMIE Harper Ot R10.2 PELVIC AND PERINEAL PAIN 01/12/2018 SHAKEEL MCCLOUDTOMMIE Ot Z01.818 ENCOUNTER FOR OTHER PREPROCEDURAL EXAMIN 01/18/2018 SHAKEEL DOTOMMIE Ot N80.3 ENDOMETRIOSIS OF PELVIC PERITONEUM 01/18/2018 SHAKEEL DOTOMMIE Ot N94.10 UNSPECIFIED DYSPAREUNIA 01/18/2018 SHAKEEL MCCLOUDTOMMIE Ot R10.2 PELVIC AND PERINEAL PAIN 01/18/2018 SHAKEEL DOTOMMIE Ot Z40.03 ENCOUNTER FOR PROPHYLACTIC REMOVAL OF FA 01/23/2018 SHAKEEL MCCLOUDTOMMIE Ot N80.3 ENDOMETRIOSIS OF PELVIC PERITONEUM 01/23/2018 CHAPARROANTHONY DOTOMMIE Ot N94.10 UNSPECIFIED DYSPAREUNIA 01/23/2018 SHAKEEL DOTOMMIE Ot R10.2 PELVIC AND PERINEAL PAIN 01/23/2018 SHAKEEL DO, TOMMIE Harper Ot Z40.03 ENCOUNTER FOR PROPHYLACTIC REMOVAL OF FA 01/31/2018 TOMMIE BECKFORD DO Ot D62 ACUTE POSTHEMORRHAGIC ANEMIA 01/31/2018 TOMMIE BECKFORD DO Ot E86.1 HYPOVOLEMIA 01/31/2018 TOMMIE BECKFORD DO Ot E87.6 HYPOKALEMIA 01/31/2018 TOMMIE BECKFORD DO Ot N92.0 EXCESSIVE AND FREQUENT MENSTRUATION WITH 01/31/2018 TOMMIE BECKFORD DO Ot R00.0 TACHYCARDIA, UNSPECIFIED 01/31/2018 CHAPARROTOMMIE CRUZ DO Ot R00.2 PALPITATIONS 01/31/2018 TOMMIE BECKFORD DO Ot R20.0 ANESTHESIA OF SKIN 01/31/2018 TOMMIE BECKFORD DO Ot R42 DIZZINESS AND GIDDINESS 01/31/2018 TOMMIE BECKFORD DO Ot D62 ACUTE POSTHEMORRHAGIC ANEMIA 01/31/2018 TOMMIE BECKFORD DO Ot E86.1 HYPOVOLEMIA 01/31/2018 TOMMIE BECKFORD DO Ot E87.6 HYPOKALEMIA 01/31/2018 TOMMIE BECKFORD DO Ot N92.0 EXCESSIVE AND FREQUENT MENSTRUATION WITH 01/31/2018 SHAKEEL MCCLOUD TOMMIE Harper Ot R00.0 TACHYCARDIA, UNSPECIFIED 01/31/2018 SHAKEEL MCCLOUD TOMMIE Harper Ot R00.2 PALPITATIONS 01/31/2018 SHAKEEL MCCLOUD TOMMIE Harper Ot R20.0 ANESTHESIA OF SKIN 01/31/2018 SHAKEEL MCCLOUD TOMMIE Harper Ot R42 DIZZINESS AND GIDDINESS 02/14/2018 SHAKEEL MCCLOUD TOMMIE Harper Alexis D50.0 IRON DEFICIENCY ANEMIA SECONDARY TO BLOO 02/14/2018 SHAKEEL MCCLOUD TOMMIE Harper Ot N92.0 EXCESSIVE AND FREQUENT MENSTRUATION WITH 02/14/2018 TOMMIE BECKFORD DO Alexis Z01.812 ENCOUNTER FOR PREPROCEDURAL LABORATORY E 02/14/2018 SHAKEEL MCCLOUD TOMMIE Harper Alexis Z11.2 ENCOUNTER FOR SCREENING FOR OTHER BACTER Procedures Code Description Performed By Performed On 96.49 OTHER INSTILLATION 08/29/2011 73.6 EPISIOTOMY 08/30/2011 [id number] REPAIR VULVA, EXTERNAL APPROACH 10/16/2015 [id number] DELIVERY OF PRODUCTS OF CONCEPTION, EXTE 10/16/2015 [...] ABO+Rh group AP NRG Transfusion band number [id number] NRG Blood group antibody screen NEGATIVE NRG Serum or plasma choriogonadotropin measurement (units/volume) - 11/21/17 14:32 Serum or plasma choriogonadotropin measurement (units/volume) 25725 m[iU]/mL <5 Automated blood complete blood count [...] blood basophil count (count/volume) 0.0 10*3/uL 0.0-0.1 Urine beta human chorionic gonadotropin (hCG) measurement - 01/18/18 07:50 Urine beta human chorionic gonadotropin (hCG) measurement NEGATIVE NEGATIVE Methicillin resistant Staphylococcus aureus (MRSA) screening culture - 07:50 Methicillin resistant Staphylococcus aureus (MRSA) screening culture NEG NRG Complete blood count (CBC) with automated white blood cell (WBC) differential - 01/18/18 08:15 Blood leukocytes automated count (number/volume) 5.2 10*3/uL 4.3-11.0 Blood erythrocytes automated count (number/volume) 4.09 10*6/uL 4.35-5.85 Venous blood hemoglobin measurement (mass/volume) 13.1 g/dL 11.5-16.0 Blood hematocrit (volume fraction) 39 % 35-52 Automated erythrocyte mean corpuscular volume 95 [foz_us] 80-99 Automated erythrocyte mean corpuscular hemoglobin (mass per erythrocyte) 32 pg 25-34 Automated erythrocyte mean corpuscular hemoglobin concentration measurement ( mass/volume) 34 g/dL 32-36 Automated erythrocyte distribution width ratio 11.9 % 10.0-14.5 Automated blood platelet count (count/volume) 219 10*3/uL 130-400 Automated blood platelet mean volume measurement 9.3 [foz_us] 7.4-10.4 Automated blood neutrophils/100 leukocytes 66 % 42-75 Automated blood lymphocytes/100 leukocytes 25 % 12-44 Blood monocytes/100 leukocytes 7 % 0-12 Automated blood eosinophils/100 leukocytes 2 % 0-10 Automated blood basophils/100 leukocytes 1 % 0-10 Blood neutrophils automated count (number/volume) 3.5 10*3 1.8-7.8 Blood lymphocytes automated count (number/volume) 1.3 10*3 1.0-4.0 Blood monocytes automated count (number/volume) 0.4 10*3 0.0-1.0 Automated eosinophil count 0.1 10*3/uL 0.0-0.3 Automated blood basophil count (count/volume) 0.0 10*3/uL 0.0-0.1 Blood type T Indirect antibody screen panel - 01/18/18 08:15 ABO+Rh group AP NR Transfusion band number [id number] NR Blood group antibody screen NEGATIVE NR Complete blood count (CBC) with automated white blood cell (WBC) differential - 01/30/18 14:15 Blood leukocytes automated count (number/volume) 8.0 10*3/uL 4.3-11.0 Blood erythrocytes automated count (number/volume) 4.20 10*6/uL 4.35-5.85 Venous blood hemoglobin measurement (mass/volume) 13.5 g/dL 11.5-16.0 Blood hematocrit (volume fraction) 40 % 35-52 Automated erythrocyte mean corpuscular volume 94 [foz_us] 80-99 Automated erythrocyte mean corpuscular hemoglobin (mass per erythrocyte) 32 pg 25-34 Automated erythrocyte mean corpuscular hemoglobin concentration measurement ( mass/volume) 34 g/dL 32-36 Automated erythrocyte distribution width ratio 11.8 % 10.0-14.5 Automated blood platelet count (count/volume) 252 10*3/uL 130-400 Automated blood platelet mean volume measurement 9.8 [foz_us] 7.4-10.4 Automated blood neutrophils/100 leukocytes 72 % 42-75 Automated blood lymphocytes/100 leukocytes 23 % 12-44 Blood monocytes/100 leukocytes 5 % 0-12 Automated blood eosinophils/100 leukocytes 0 % 0-10 Automated blood basophils/100 leukocytes 0 % 0-10 Blood neutrophils automated count (number/volume) 5.8 10*3 1.8-7.8 Blood lymphocytes automated count (number/volume) 1.8 10*3 1.0-4.0 Blood monocytes automated count (number/volume) 0.4 10*3 0.0-1.0 Automated eosinophil count 0.0 10*3/uL 0.0-0.3 Automated blood basophil count (count/volume) 0.0 10*3/uL 0.0-0.1 Comprehensive metabolic panel - 01/30/18 14:15 Serum or plasma sodium measurement (moles/volume) 139 mmol/L 135-145 Serum or plasma potassium measurement (moles/volume) 3.4 mmol/L 3.6-5.0 Serum or plasma chloride measurement (moles/volume) 105 mmol/L 98-107 Carbon dioxide 17 mmol/L 21-32 Serum or plasma anion gap determination (moles/volume) 17 mmol/L 5-14 Serum or plasma urea nitrogen measurement (mass/volume) 9 mg/dL 7-18 Serum or plasma creatinine measurement (mass/volume) 0.78 mg/dL 0.60-1.30 Serum or plasma urea nitrogen/creatinine mass ratio 12 NRG Serum or plasma creatinine measurement with calculation of estimated glomerular filtration rate > NRG Serum or plasma glucose measurement (mass/volume) 109 mg/dL 70-105 Serum or plasma calcium measurement (mass/volume) 10.2 mg/dL 8.5-10.1 Serum or plasma total bilirubin measurement (mass/volume) 0.5 mg/dL 0.1-1.0 Serum or plasma alkaline phosphatase measurement (enzymatic activity/volume) 51 U/L 40-136 Serum or plasma aspartate aminotransferase measurement (enzymatic activity/ volume) 14 U/L 5-34 Serum or plasma alanine aminotransferase measurement (enzymatic activity/volume ) 12 U/L 0-55 Serum or plasma protein measurement (mass/volume) 7.4 g/dL 6.4-8.2 Serum or plasma albumin measurement (mass/volume) 4.9 g/dL 3.2-4.5 Blood type T Indirect antibody screen panel - 01/30/18 14:15 ABO+Rh group AP NR Transfusion band number [id number] NR Blood group antibody screen NEGATIVE NR THYROID STIMULATING HORMONE - 01/30/18 14:15 THYROID STIMULATING HORMONE 1.16 u[iU]/mL 0.35-4.94 Serum or plasma thyroxine (T4) free measurement (mass/volume) - 01/30/18 14:15 Serum or plasma thyroxine (T4) free measurement (mass/volume) 1.09 ng/dL 0.70-1.48 Automated blood complete blood count (hemogram) panel - 01/31/18 05:39 Blood leukocytes automated count (number/volume) 5.7 10*3/uL 4.3-11.0 Blood erythrocytes automated count (number/volume) 3.46 10*6/uL 4.35-5.85 Venous blood hemoglobin measurement (mass/volume) 10.9 g/dL 11.5-16.0 Blood hematocrit (volume fraction) 34 % 35-52 Automated erythrocyte mean corpuscular volume 97 [foz_us] 80-99 Automated erythrocyte mean corpuscular hemoglobin (mass per erythrocyte) 32 pg 25-34 Automated erythrocyte mean corpuscular hemoglobin concentration measurement ( mass/volume) 32 g/dL 32-36 Automated erythrocyte distribution width ratio 11.9 % 10.0-14.5 Automated blood platelet count (count/volume) 174 10*3/uL 130-400 Automated blood platelet mean volume measurement 9.7 [foz_us] 7.4-10.4 Whole blood basic metabolic panel - 01/31/18 05:39 Serum or plasma sodium measurement (moles/volume) 141 mmol/L 135-145 Serum or plasma potassium measurement (moles/volume) 3.9 mmol/L 3.6-5.0 Serum or plasma chloride measurement (moles/volume) 111 mmol/L 98-107 Carbon dioxide 23 mmol/L 21-32 Serum or plasma anion gap determination (moles/volume) 7 mmol/L 5-14 Serum or plasma urea nitrogen measurement (mass/volume) 8 mg/dL 7-18 Serum or plasma creatinine measurement (mass/volume) 0.63 mg/dL 0.60-1.30 Serum or plasma urea nitrogen/creatinine mass ratio 13 NRG Serum or plasma creatinine measurement with calculation of estimated glomerular filtration rate > NRG Serum or plasma glucose measurement (mass/volume) 97 mg/dL 70-105 Serum or plasma calcium measurement (mass/volume) 8.5 mg/dL 8.5-10.1 Magnesium - 01/31/18 05:39 Magnesium 1.9 mg/dL 1.8-2.4 Complete blood count (CBC) with automated white blood cell (WBC) differential - 02/12/18 10:35 Blood leukocytes automated count (number/volume) 5.6 10*3/uL 4.3-11.0 Blood erythrocytes automated count (number/volume) 4.39 10*6/uL 4.35-5.85 Venous blood hemoglobin measurement (mass/volume) 13.7 g/dL 11.5-16.0 Blood hematocrit (volume fraction) 41 % 35-52 Automated erythrocyte mean corpuscular volume 93 [foz_us] 80-99 Automated erythrocyte mean corpuscular hemoglobin (mass per erythrocyte) 31 pg 25-34 Automated erythrocyte mean corpuscular hemoglobin concentration measurement ( mass/volume) 34 g/dL 32-36 Automated erythrocyte distribution width ratio 11.9 % 10.0-14.5 Automated blood platelet count (count/volume) 232 10*3/uL 130-400 Automated blood platelet mean volume measurement 9.5 [foz_us] 7.4-10.4 Automated blood neutrophils/100 leukocytes 71 % 42-75 Automated blood lymphocytes/100 leukocytes 23 % 12-44 Blood monocytes/100 leukocytes 5 % 0-12 Automated blood eosinophils/100 leukocytes 1 % 0-10 Automated blood basophils/100 leukocytes 0 % 0-10 Blood neutrophils automated count (number/volume) 4.0 10*3 1.8-7.8 Blood lymphocytes automated count (number/volume) 1.3 10*3 1.0-4.0 Blood monocytes automated count (number/volume) 0.3 10*3 0.0-1.0 Automated eosinophil count 0.1 10*3/uL 0.0-0.3 Automated blood basophil count (count/volume) 0.0 10*3/uL 0.0-0.1 Whole blood basic metabolic panel - 02/12/18 10:35 Serum or plasma sodium measurement (moles/volume) 138 mmol/L 135-145 Serum or plasma potassium measurement (moles/volume) 4.1 mmol/L 3.6-5.0 Serum or plasma chloride measurement (moles/volume) 107 mmol/L 98-107 Carbon dioxide 23 mmol/L 21-32 Serum or plasma anion gap determination (moles/volume) 8 mmol/L 5-14 Serum or plasma urea nitrogen measurement (mass/volume) 11 mg/dL 7-18 Serum or plasma creatinine measurement (mass/volume) 0.76 mg/dL 0.60-1.30 Serum or plasma urea nitrogen/creatinine mass ratio 14 NRG Serum or plasma creatinine measurement with calculation of estimated glomerular filtration rate > NRG Serum or plasma glucose measurement (mass/volume) 92 mg/dL 70-105 Serum or plasma calcium measurement (mass/volume) 9.8 mg/dL 8.5-10.1 Blood type T Indirect antibody screen panel - 02/12/18 10:35 ABO+Rh group AP NRG Blood group antibody screen NEGATIVE NRG Methicillin resistant Staphylococcus aureus (MRSA) screening culture - 10:40 Methicillin resistant Staphylococcus aureus (MRSA) screening culture NEG NRG Encounters ACCT No. Visit Date/Time Discharge Status Pt. Type Provider Facility Loc./Unit Complaint [id number] 02/12/2018 09:59:00 02/12/2018 12:22:00 DIS Outpatient TOMMIE BECKFORD DO [facility] PREOP AUB,CHRONIC BLOOD LOSS ANEMIA [id number] 01/30/2018 13:45:00 01/31/2018 09:20:00 DIS Inpatient TOMMIE BECKFORD DO [facility] WS DYSFUNCTIONAL UTERINE BLEEDING [id number] 01/18/2018 07:47:00 01/18/2018 14:10:00 DIS Outpatient TOMMIE BECKFORD DO [facility] CHRONIC PELVIC PAIN, DYSPAREUNIA [id number] 01/10/2018 05:30:00 01/10/2018 16:01:00 DIS Outpatient TOMMIE BECKFORD DO [facility] PREOP CHRONIC PELVIC PAIN ,DYSPAREUNIA [id number] 12/14/2017 12:08:00 12/14/2017 23:59:59 CLS Outpatient TOMMIE BECKFORD DO [facility] RAD R10.2 CHRONIC PELVIC PAIN [id number] 11/21/2017 14:27:00 11/22/2017 10:15:00 DIS Outpatient TOMMIE BECKFORD DO [facility] SPONTANEOUS [id number] 02/02/2017 10:20:00 02/02/2017 23:59:59 CLS Outpatient TOMMIE BECKFORD DO [facility] RAD PELVIC PAIN IN FEMALE R10.2,IUD IN PLACE Z97.5 [id number] 01/09/2017 12:12:00 01/09/2017 23:59:59 CLS Outpatient MELVIN OWENS DO [facility] LAB Z32.01 [id number] 03/04/2016 12:15:00 03/04/2016 15:49:00 DIS Emergency BART RAMIREZ MD [facility] ER ELEVATED BP/DIZZY/SOA [id number] 11/30/2015 13:58:00 11/30/2015 23:59:59 CLS Outpatient TOMMIE BECKFORD DO [facility] RAD BACK PAIN [id number] 10/15/2015 07:30:00 10/18/2015 12:05:00 DIS Inpatient TOMMIE BECKFORD DO [facility] LDRP BLEEDING,INVERSION [id number] 09/30/2015 13:19:00 09/30/2015 15:30:00 DIS Outpatient ZAHRA LOZANO, MEENA Costa [facility] WSo CRAMPING [id number] 04/14/2015 08:38:00 04/14/2015 11:34:00 DIS Emergency JENNI LOZANO, AMANUEL Buckner [facility] ER VISION CHANGE/LEFT ARM NUMBNESS [id number] 12/30/2014 13:55:00 12/30/2014 23:59:59 CLS Outpatient ASHLEY ELENA DDS [facility] RAD ARTHRITIS [id number] 02/15/2018 06:00:00 ACT Outpatient SHAKEEL MCCLOUD TOMMIE S [facility] SDC AUB,CHRONIC BLOOD LOSS ANEMIA [id number] 11/05/2012 11:37:00 Document Registration [id number] 05/14/2012 08:02:00 Document Registration [id number] 04/25/2012 09:22:00 Document Registration [id number] 08/29/2011 12:56:00 Document Registration [id number] 08/18/2011 16:00:00 Document Registration [id number] 08/16/2011 15:20:00 Document Registration [id number] 07/28/2011 13:32:00 Document Registration [id number] 07/15/2011 20:03:00 Document Registration [id number] 05/03/2011 12:51:00 Document Registration [id number] 01/13/2011 11:10:00 Document Registration [id number] 02/03/2010 19:10:00 Document Registration [id number] 08/26/2009 14:44:00 Document Registration [id number] 04/14/2015 08:39:05 ACT Document Registration
[2018-02-15] MEDS ORDERED: ATRACURIUM 50 MG/5 ML (TRACRIUM) IV ONE ×2 (06:39→06:42)
[2018-02-15] MEDS ORDERED: HURRICAINE EXT TUBE (BENZOCAINE) ONE (06:40)
[2018-02-15] MEDS ORDERED: LIDOCAINE PF 2% 5 ML (XYLOCAINE) VIAL ONE (06:40)
[2018-02-15] MEDS ORDERED: fentaNYL INJECTION 100 MCG/2 ML AMP ONE (06:40)
[2018-02-15] MEDS ORDERED: LACTATED RINGERS 1,000 ML IV ONE (06:40)
[2018-02-15] MEDS ORDERED: SEVOFLURANE (ULTANE) 15 ML INHAL SOLN ONE ×7 (06:40→08:58)
[2018-02-15] MEDS ORDERED: MIDAZOLAM 2 MG/2 ML (VERSED) VIAL ONE (06:40)
[2018-02-15] MEDS ORDERED: proPOfol 200 MG/20 ML (DIPRIVAN) VIAL IV ONE (06:40)
[2018-02-15] MEDS ORDERED: DEXAMETHASONE 10 MG/ML (DECADRON) 1 ML VIAL ONE (06:40)
[2018-02-15 06:54] VITALS: BP 116/95
[2018-02-15] MEDS ORDERED: BUPIVACAINE 0.25% 30 ML (SENSORCAINE) VIAL ONE (06:58)
[2018-02-15] MEDS ORDERED: metroNIDAZOLE 500MG/100ML IVPB 100 ML ONE (06:59)
[2018-02-15] MEDS ORDERED: NS (IVPB) 50 ML ONE (06:59)
[2018-02-15] MEDS ORDERED: ceFAZolin 1,000 MG (ANCEF) VIAL ONE (06:59)
--- NOTE | 2018-02-15 07:19 | Progress Note-Pre Operative ---
Pre-Operative Progress Note H&P Reviewed The H&P was reviewed, patient examined and no changes noted. Date Seen by Provider: Feb 15, 2018 Time Seen by Provider: 07:00 Date H&P Reviewed: Feb 15, 2018 Time H&P Reviewed: 07:05 Pre-Operative Diagnosis: AUB-Menorrhagia w/ blood loss anemia TOMMIE BECKFORD DO Feb 15, 2018 7:19 am
--- NOTE | 2018-02-15 07:23 | Discharge Inst-Women's Service ---
Discharge Inst-Women's Serv Depart Medication/Instructions New, Converted or Re-Newed RX: RX on Chart Consults/Follow Up Additional Follow Up: Yes Orders/Referrals Dr. Dinh in 7-10 day. Also in 8 week Activity Activity: Activity as Tolerated Driving Instructions: No Driving for 1 Week NO SMOKING: NO SMOKING Nothing Inside Vagina: No Douching, No [place], No Tampons Diet Discharge Diet: No Restrictions Symptoms to Report to : Bleeding Excessive, Pain Increased, Fever Over 101 Degrees F, Vaginal Bleeding Increase, Questions/Concerns For Any Problems or Questions: Contact Your Physician Skin/Wound Care Infection Signs and Symptoms: Increased Redness, Foul Odor of Wound, Increased Drainage, Skin Itchy or Has a Rash, Increased Swelling, Temperature Above 101 F Operative Area Clean and Dry: Keep Incision Clean/Dry Stitches/Liang/Dermabond: Dermabond, Care of Stitches Bathing Instructions: TOMMIE Guerrero DO Feb 15, 2018 7:23 am
[2018-02-15] MEDS ORDERED: HYDR-34 PO (07:25)
[2018-02-15] MEDS ORDERED: DOCU100C37 PO (07:25)
[2018-02-15] MEDS ORDERED: IBUP-844 PO (07:25)
[2018-02-15] MEDS ORDERED: SIME80TA16 PO (07:25)
[2018-02-15] MEDS ORDERED: DOCUSATE SODIUM 100 MG (COLACE) CAP PO PRN (07:30)
[2018-02-15] MEDS ORDERED: CHLORASEPTIC LOZENGE MM PRN (07:30)
[2018-02-15] MEDS ORDERED: SIMETHICONE 80 MG (MYLICON) CHEW PO PRN (07:30)
[2018-02-15] MEDS ORDERED: ANTACID SUSP 30 ML UDC (MYLANTA) PO PRN (07:30)
[2018-02-15] MEDS ORDERED: ZOLPIDEM 5 MG (AMBIEN) TAB PO PRN (07:30)
[2018-02-15] MEDS ORDERED: ESMOLOL 100 MG/10 ML (BREVIBLOC) VIAL ONE (08:12)
[2018-02-15] MEDS ORDERED: MEPERIDINE (DEMEROL) INJ 50 MG/ML ONE (09:05)
[2018-02-15] MEDS ORDERED: morphine INJ 10 MG/ML 1ML (SYR OR VIAL) ONE (09:05)
[2018-02-15] MEDS ORDERED: ONDANSETRON 4 MG/2 ML (SDV) Z0FRAN IVP PRN (09:15)
[2018-02-15] MEDS: morphine INJ 10 MG/ML 1ML (SYR OR VIAL) IVP PRN ×2 (09:22→09:27)
[2018-02-15] MEDS ORDERED: KETOROLAC 30 MG/ML VIAL ONE (09:26)
[2018-02-15] MEDS: KETOROLAC 30 MG/ML VIAL IV PRN ×3 (09:30→21:01)
--- NOTE | 2018-02-15 09:57 | OPERATIVE REPORT ---
DATE OF SERVICE: PREOPERATIVE DIAGNOSES: 1. A 27-year-old female with abnormal uterine bleeding - menorrhagia. 2. Acute blood loss anemia. POSTOPERATIVE DIAGNOSES: 1. A 27-year-old female with abnormal uterine bleeding - menorrhagia. 2. Acute blood loss anemia. PROCEDURE: Robotic-assisted total laparoscopic hysterectomy. SURGEON: Daniel Beckford DO. BRANCH SERVICE SPECIALIST: LULA Lozada. ANESTHESIA: General endotracheal. ESTIMATED BLOOD LOSS: 50 mL. URINE OUTPUT: 50 mL clear at the end of the procedure. FLUIDS: 1800 mL of lactated Ringer solution. FINDINGS: A normal appearing uterus with absence of fallopian tubes from previous salpingectomy. Grossly normal appearing bilateral ovaries. SPECIMEN SENT: Uterus and cervix. INDICATIONS FOR PROCEDURE: This is a 27-year-old female patient that underwent a miscarriage earlier this year. Since her miscarriage, the patient has had uncontrollable bleeding episodes to the point of admission and blood transfusion requirement. Beta hCG levels had remained negative, so there was no concern for residual placental tissue and late hemorrhage was ruled out. She has a history of a TIA in the past, the hormonal therapy was contraindicated. We attempted to allow several months to pass by; however, with each menstrual cycle, they seemed to get heavier and more painful. Laparoscopy and D and C was performed several months after this incident, which the patient wanted her fallopian tubes removed as she did not desire for further and was concerned that a future could result in another miscarriage with heavy bleeding. Therefore, salpingectomy was performed at that point. After that procedure, though, there was no improvement in her bleeding. We discussed the risks involved with an attempt of hormonal treatment of her bleeding. We discussed endometrial ablation; however, the patient at that point due to the fact she no longer want any future childbearing, elected to proceed with hysterectomy despite that being a more risky procedure. Risks of the procedure were discussed with the patient in detail as well as its alternatives. After all of her questions were answered, consent was obtained in the preoperative area and the patient was taken to the operating room. OPERATIVE REPORT IN DETAIL: Once in the operating room, general anesthesia was found to be adequate. She was placed in dorsal lithotomy position and prepped and draped in a normal sterile fashion. A weighted speculum was inserted in the patient's vagina after a Pimentel catheter was placed and a time-out was performed. A right angle retractor was used to visualize the cervix, which was grasped at 12 o'clock position using a long Allis clamp. I then placed a 0 Vicryl suture to the anterior lip of the cervix and removed the Allis clamp. This was then used as my retraction point. I then sound the uterine cavity depth, which was found to be 8 cm. I then selected an 8 cm Mandi uterine manipulator tip and a 3 cm colpotomy ring. I placed the tip into the uterine cavity, deploying the balloon and advancing the colpotomy ring around the vaginal fornix. Once this was in place, I was able to appreciate excellent bimanual manipulation. I then performed a change of gloves. I took my attention to the abdomen where infraumbilically I infiltrated this area using 0.25% Marcaine and made an 8 mm incision, directed a Veress needle through this incision until intraperitoneal placement was confirmed using a saline drop test. I then proceeded with insufflation using CO2 gas and opening pressure of 2 mmHg was noted. I proceeded to max pressure of 15 mmHg, at which point I removed the Veress needle and introduced an 8 mm blunt da Yakelin camera trocar. Once this was in place, I was able to confirm intraperitoneal placement using the da Yakelin laparoscope. I then had the patient placed in steep Trendelenburg. After brief a scan, the upper abdominal anatomy appeared grossly normal. Once in steep Trendelenburg, I was able to see all of the findings described in my findings above. I then placed two lateral trocars approximately 8 cm lateral to my infraumbilical trocar, both of these areas were infiltrated with 0.25% Marcaine. An incision was made with a knife and the trocars were placed under direct visualization of the laparoscope. Once these were in place, I brought in the da Yakelin robot and docked it in the appropriate fashion. I placed the vessel sealer in the left hand and monopolar constance in the right hand performing the following dissection bilaterally. I grasped the uteroovarian ligament, bipolar cauterized and transected this using the vessel sealer. I then grasped the round ligament, bipolar cauterized this and transected it using a vessel sealer. I then took my dissection down the broad ligament using the vessel sealer and then I the anterior and posterior leaflets of the broad ligament. The anterior leaflet was taken down to the anterior vaginal fornix. The posterior leaflet was taken around to the posterior vaginal fornix. This allowed me to skeletonize the uterine vessels laterally, which I then bipolar cauterized and transected using the vessel sealer. I then performed a colpotomy at the 12 o'clock position using monopolar constance and took this circumferentially around the vaginal fornix amputating the cervix away from the vaginal fornix. Once this was done, the uterus and cervix were removed through the vagina. I then closed the vaginal cuff and the lateral vaginal apices using a 3-0 Vicryl suture in a [id number] fashion colposuspending them to the uterosacral ligaments bilaterally. I then closed the remainder of the vaginal cuff using 2-0 V-Loc in a running fashion, after which no active bleeding was noted from any of my dissection planes. I then undocked the da Yakelin robot and proceeded with the remainder of the case laparoscopically. I copiously irrigated the pelvis using normal saline. Once again, there was no active bleeding noted from any of my dissection planes. I placed FloSeal and hemostatic agent over all my planes of dissection to ensure excellent postoperative hemostasis. I then slowly had the patient taken out of steep Trendelenburg and removed the lateral trocars under direction visualization of the laparoscope. The infraumbilical trocar was left in place. I then introduced 10 mL of 0.25% Marcaine for postoperative pain management and to release insufflation. Once this was done, I removed the infraumbilical trocar. The skin was then reapproximated using 4-0 Monocryl in interrupted subcuticular stitches. Dermabond was applied to the incision. Band-Aids were placed over these. Pimentel catheter was left in place. The patient tolerated the procedure well and was taken to the recovery area in stable condition. Lap and sponge counts correct at the end of the procedure. Instrument count was correct as well. One gram of Ancef and 500 mg of Flagyl were given preoperatively for infection prophylaxis. Job ID: [id number] DocumentID: [id number] Dictated Date: 02/15/2018 08:51:22 Trucking Supervisor Date: 02/15/2018 09:56:45 Dictated By: DANIEL BECKFORD DO
[2018-02-15 10:10] VITALS: BP 104/70
[2018-02-15] MEDS ORDERED: HYDROcodone/APAP 7.5 MG/325 MG (LORTAB, LORCET PLUS) TABLET PO ONE (10:51)
[2018-02-15] MEDS: HYDROcodone/APAP 7.5 MG/325 MG (LORTAB, LORCET PLUS) TABLET PO PRN ×2 (10:54→17:27)
[2018-02-15] MEDS: LACTATED RINGERS 1,000 ML IV SCH ×3 (11:08→23:20)
--- NOTE | 2018-02-15 12:28 | Anesthesia-General Post-Op ---
General Patient Condition Mental Status/LOC: Same as Preop Cardiovascular: Satisfactory Nausea/Vomiting: Absent Respiratory: Satisfactory Pain: Controlled Complications: Absent Post Op Complications Complications None Follow Up Care/Instructions Patient Instructions None needed. Anesthesia/Patient Condition Patient Condition Patient is doing well, no complaints, stable vital signs, no apparent adverse anesthesia problems. No complications reported per nursing. D/C home per [facility] Criteria: Yes NENITA VELASQUEZ CRNA Feb 15, 2018 12:28
[2018-02-15 12:55] VITALS: BP 96/61
[2018-02-15] MEDS: HYDROmorphone 1 MG/ML (DILAUDID) 1 ML SYRINGE IV PRN ×2 (13:43→18:55)
[2018-02-15] MEDS: ONDANSETRON 4 MG/2 ML (SDV) Z0FRAN IV PRN ×2 (13:47→18:55)
[2018-02-15 16:49] VITALS: BP 107/71
[2018-02-15 20:28] VITALS: BP 116/73
[2018-02-15] MEDS ORDERED: PROMETHAZINE INJ 25 MG/ML (PHENERGAN) AMP IVP PRN (20:45)
[2018-02-16 00:15] VITALS: BP 84/43
[2018-02-16] MEDS: IBUPROFEN 600 MG (MOTRIN) TAB PO PRN ×2 (03:37→09:28)
[2018-02-16 04:00] VITALS: BP 94/49
[2018-02-16 08:00] VITALS: BP 92/55
[2018-02-16] MEDS: HYDROcodone/APAP 7.5 MG/325 MG (LORTAB, LORCET PLUS) TABLET PO PRN (08:20)
== END 2018-02-16 10:55 | disposition home or self-care (01) ==
LOC: SDC 06:00 → WS 10:00 → SDC 02-16 10:55
PROVIDERS: ATTEND Obstetrics & Gynecology
DX: N92.0 Excessive and frequent menstruation with regular cycle (principal); D62 Acute posthemorrhagic anemia; N85.8 Other specified noninflammatory disorders of uterus; Q23.8 Other congenital malformations of aortic and mitral valves; Z86.73 Personal history of transient ischemic attack (TIA), and cerebral infarction without residual deficits
CPT/HCPCS: 84703; 86850; 86900; 86901; 94664

== ENCOUNTER 2018-02-25 00:16 | Observation (INO) | payer BC ==
[~2018-02-25] VITALS: Ht 167.6 cm; Wt 61.2 kg
[~2018-02-25 00:16] MED LIST changes: +DOCU100C37 PO; +HYDR-34 PO; +IBUP-844 PO; +SIME80TA16 PO
[2018-02-25] MEDS ORDERED: NS IV 1000 ML 1,000 ML IV ONE ×2 (00:21→03:00)
[2018-02-25 00:32] LABS: BASOPHILS # (AUTO) 0.1 10^3/uL (0.0-0.1); BASOPHILS % (AUTO) 1 % (0-10); EOSINOPHILS # (AUTO) 0.3 10^3/uL (0.0-0.3); EOSINOPHILS % (AUTO) 3 % (0-10); HEMATOCRIT 39 % (35-52); HEMOGLOBIN 13.2 G/DL (11.5-16.0); LYMPHOCYTES # (AUTO) 2.8 X 10^3 (1.0-4.0); LYMPHOCYTES % (AUTO) 27 % (12-44); MEAN CORPUSCULAR HEMOGLOBIN 31 PG (25-34); MEAN CORPUSCULAR HGB CONC 34 G/DL (32-36); MEAN CORPUSCULAR VOLUME 93 FL (80-99); MEAN PLATELET VOLUME 9.4 FL (7.4-10.4); MONOCYTES # (AUTO) 0.7 X 10^3 (0.0-1.0); MONOCYTES % (AUTO) 7 % (0-12); NEUTROPHILS # (AUTO) 6.4 X 10^3 (1.8-7.8); NEUTROPHILS % (AUTO) 62 % (42-75); PLATELET COUNT 262 10^3/uL (130-400); RED BLOOD COUNT 4.22 10^6/uL (4.35-5.85); RED CELL DISTRIBUTION WIDTH 11.8 % (10.0-14.5); WHITE BLOOD COUNT 10.2 10^3/uL (4.3-11.0)
[2018-02-25 00:35] VITALS: BP_SYST 122; BP_SYST 133; BP_SYST 140; BP_DIAS 113; BP_DIAS 88; BP_DIAS 92
[2018-02-25 00:49] LABS: ALANINE AMINOTRANSFERASE 22 U/L (0-55); ALBUMIN 4.9 GM/DL (3.2-4.5); ALKALINE PHOSPHATASE 63 U/L (40-136); BILIRUBIN,TOTAL 0.2 MG/DL (0.1-1.0); BUN/CREATININE RATIO 11; CALCIUM 9.7 MG/DL (8.5-10.1); CARBON DIOXIDE 20 MMOL/L (21-32); CHLORIDE 109 MMOL/L (98-107); CREATININE SERUM 0.74 MG/DL (0.60-1.30); GFR ESTIMATED > 60; GLUCOSE 106 MG/DL (70-105); POTASSIUM 3.4 MMOL/L (3.6-5.0); SODIUM 142 MMOL/L (135-145); TOTAL PROTEIN 7.5 GM/DL (6.4-8.2)
[2018-02-25 00:54] LABS: PROTHROMBIN TIME PATIENT 13.2 SEC (12.2-14.7)
--- NOTE | 2018-02-25 01:09 | ED GU-Female ---
General Chief Complaint: -Female Stated Complaint: VAG BLEED Nursing Triage Note: Patient advises that bleeding began approximately 30 minutes prior to arrival to the ER. She advises she had a hysterectomy approximately 10 days ago and began experiencing spontaneous bleeding tonight. 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 BECKFORD PT HAS HAD ONGOING BLEEDING AND "EXTREME PAIN" 01/18--HAD BILATERAL SALPINGECTOMY AND LYSIS OF ENDOMETRIOSIS IMPLANTS FOR CHRONIC PELVIC PAIN 01/30/18--HAD "EXTREME BLOOD LOSS" AND WAS TACHYCARDIC--HAS HAD CONTINUED TACHYCARDIA WITH RATE IN 120'S-140'S, DIZZINESS, CHEST TIGHTNESS AND SHORTNESS OF BREATH HAS HAD ONGOING NAUSEA SINCE SURGERY--BETTER WITH FOOD 02/15/18--HAD HYST--LAVH/DAVINCI ROBOTIC ASSIST BY DR. SHAKEEL ORELLANA, WAS SITTING AT A FRIEND'S HOUSE AND HAD A SUDDEN GUSH OF BLOOD-- IMMEDIATELY PRIOR TO ARRIVAL. CAME STRAIGHT HERE HAS HAD 2 BEERS TONIGHT AT FRIEND'S HOUSE HAD ALOT OF VAGINAL PAIN THIS AM, TOOK 1/2 OF HYDROCODONE 7.5 MG WALKED ALOT TODAY--WAS AT [facility] AND WALKED AROUND THERE. NO FEVER C/O URINARY FREQUENCY NO BACK PAIN HAD NOT HAD ANY BLEEDING SINCE SURGERY AND HAS NOT USED ANY PADS SINCE SURGERY, UNTIL TONIGHT. STATES SHE FEELS LIKE HER PAD IS SATURATED--ONLY SMALL AMOUNT OF BLOOD ON PAD, LESS THAN 1/4 OF PAD HAS BLOOD ON IT. Allergies and Home Medications Allergies Coded Allergies: Penicillins (Unverified Allergy, Mild, RASH, CAN TAKE CEPHALEXIN, 02/12/18) Home Medications Docusate Sodium 100 Mg Capsule, 100 MG PO BID PRN for CONSTIPATION-1ST LINE Prescribed by: TOMMIE BECKFORD on 02/15/18 0725 Hydrocodone Bit/Acetaminophen 1 Ea Tablet, 2 EA PO Q6H PRN for Pain-See Instructions Prescribed by: TOMMIE BECKFORD on 02/15/18724 Ibuprofen 600 Mg Tablet, 600 MG PO Q6H PRN for PAIN-MODERATE Prescribed by: TOMMIE BECKFORD on 02/15/18724 Sertraline HCl 25 Mg Tablet, 25 MG PO DAILY, (Reported) Simethicone 80 Mg Tab.chew, 40 MG PO TID PRN for INDIGESTION 2ND LINE Prescribed by: TOMMIE BECKFORD on 02/15/18724 Patient Home Medication List Home Medication List Reviewed: Yes Review of Systems Constitutional: see HPI, dizziness Respiratory: see HPI, short of breath Cardiovascular: see HPI, chest pain, palpitations; No syncope Gastrointestinal: see HPI, nausea; No vomiting Genitourinary: see HPI Musculoskeletal: no symptoms reported Skin: no symptoms reported Psychiatric/Neurological: Anxiety Endocrine: No Symptoms Reported Hematologic/Lymphatic: See HPI Past Bjlexbd-Kybkmo-Kgfiyn Hx Patient Social History Alcohol Use: Occasionally Uses Number of Drinks Today: Alcohol Beverage of Choice: Beer, Wine Recreational Drug Use: No Smoking Status: Never a Smoker Recent Foreign Travel: No Contact w/Someone Who Travel: No Recent Infectious Disease Expo: No Recent Hopitalizations: Yes (11/2017-BLEEDING/D&C, 01/2018-BLEEDING/TACHYCARDIA, 01/30/18 bleeding/cardiac ) Physical Abuse: No Sexual Abuse: No Immunizations Up To Date Tetanus Booster (TDap): Less than 5yrs PED Vaccines UTD: No Date of Influenza Vaccine: Aug 14, 2015 Seasonal Allergies Seasonal Allergies: Yes Past Medical History Surgeries: Yes (WISDOM TEETH, D&C, CYST REMOVED FROM LEFT OVARY, FALLOPIAN TUBES REMOVED; LYSIS OF ENDOMETRIOSIS IMPLANTS; HYST/LAVH-DAVINCI ROBOTIC ASSIST 02/15/18) Hysterectomy, Tonsillectomy Respiratory: No Cardiac: Yes (AV BLOCK; TACHYCARDIA) Valvular Heart Disease Neurological: Yes (MIGRAINES PRESENT STROKE-FACIAL DROOPING) Headaches /Migraines Reproductive Disorders: Yes (SPONTANEOUS AB, HX OF LEFT SIDED CYSTIC MASS; CHRONIC PELVIC PAIN) Female Reproductive Disorders: Menstrual Problems 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 History: Tubal Ligation Sexually Transmitted Disease: No HIV/AIDS: No Gastrointestinal: Yes Chronic Constipation Musculoskeletal: Yes (HERNIATED DISC) Endocrine: No HEENT: No Loss of Vision: Bilateral Hearing Impairment: Denies Cancer: No Psychosocial: Yes (DEPRESSION POST-) Anxiety, Depression Nursing Suicide Risk Score: 0 Integumentary: No Blood Disorders: 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 9.0oz. 61.468341uk; 22.6 BMI Method:Estimated General Appearance: WD/WN, no apparent distress, other (ANXIOUS, SOMEWHAT DRAMATIC. ) HEENT: PERRL/EOMI; No pale conjunctivae (R), No pale conjunctivae (L) Neck: normal inspection Cardiovascular: no edema, no JVD, no murmur, tachycardia (MILD) Respiratory: normal breath sounds, no accessory muscle use Gastrointestinal: normal bowel sounds, non tender, soft Genital/Rectal: other (SCANT AMOUNT OF CLOTTED BLOOD AT VAGINAL CUFF. NO ACTIVE BLEEDING AT THIS TIME) Back: normal inspection, no CVA tenderness Extremities: normal inspection, no pedal edema, no calf tenderness, normal capillary refill Neurologic/Psychiatric: epic [facility] II-XII nml as tested, no motor/sensory deficits, alert, oriented x 3 Skin: normal color, warm/dry Progress/Results/Core Measures Suspected Sepsis Recent Fever Within 48 Hours: No Infection Criteria Present: None New/Unexplained Altered Menta: No Sepsis Screen: No Definite Risk SIRS Temperature: Pulse: 113 Respiratory Rate: 14 Laboratory Tests 02/25/18 00:15: White Blood Count 10.2 02/25/18 02:20: White Blood Count 7.3 Blood Pressure 133 /91 Mean: 105 Laboratory Tests 02/25/18 00:15: Creatinine 0.74, INR Comment 1.0, Platelet Count 262, Total Bilirubin 0.2 02/25/18 02:20: Platelet Count 193 Results/Orders Lab Results Laboratory Tests Test 02/25/18 00:15 02/25/18 02:20 Range/Units White Blood Count 10.2 7.3 4.3-11.0 10^3/uL Red Blood Count 4.22 L 3.62 L 4.35-5.85 10^6/uL Hemoglobin 13.2 11.5 11.5-16.0 G/DL Hematocrit 39 34 L 35-52 % Mean Corpuscular Volume 93 94 80-99 FL Mean Corpuscular Hemoglobin 31 32 25-34 PG Mean Corpuscular Hemoglobin Concent 34 34 32-36 G/DL Red Cell Distribution Width 11.8 11.7 10.0-14.5 % Platelet Count 262 193 130-400 10^3/uL Mean Platelet Volume 9.4 9.3 7.4-10.4 FL Neutrophils (%) (Auto) 62 42-75 % Lymphocytes (%) (Auto) 27 12-44 % Monocytes (%) (Auto) 7 0-12 % Eosinophils (%) (Auto) 3 0-10 % Basophils (%) (Auto) 1 0-10 % Neutrophils # (Auto) 6.4 1.8-7.8 X 10^3 Lymphocytes # (Auto) 2.8 1.0-4.0 X 10^3 Monocytes # (Auto) 0.7 0.0-1.0 X 10^3 Eosinophils # (Auto) 0.3 0.0-0.3 10^3/uL Basophils # (Auto) 0.1 0.0-0.1 10^3/uL Prothrombin Time 13.2 12.2-14.7 SEC INR Comment 1.0 0.8-1.4 Activated Partial Thromboplast Time 32 24-35 SEC Sodium Level 142 135-145 MMOL/L Potassium Level 3.4 L 3.6-5.0 MMOL/L Chloride Level 109 H 98-107 MMOL/L Carbon Dioxide Level 20 L 21-32 MMOL/L Anion Gap 13 5-14 MMOL/L Blood Urea Nitrogen 8 7-18 MG/DL Creatinine 0.74 0.60-1.30 MG/DL Estimat Glomerular Filtration Rate > 60 BUN/Creatinine Ratio 11 Glucose Level 106 H 70-105 MG/DL Calcium Level 9.7 8.5-10.1 MG/DL Total Bilirubin 0.2 0.1-1.0 MG/DL Aspartate Amino Transf (AST/SGOT) 14 5-34 U/L Alanine Aminotransferase (ALT/SGPT) 22 0-55 U/L Alkaline Phosphatase 63 40-136 U/L Total Protein 7.5 6.4-8.2 GM/DL Albumin 4.9 H 3.2-4.5 GM/DL Magnesium Level 2.1 1.8-2.4 MG/DL TSH [place] Testing 1.45 0.35-4.94 UIU/ML My Orders Orders - GUSTAVOSUSAN Wright DO Saline Lock/Iv-Start (02/25/18 00:21) Orthostatic Vital Signs (Adult (02/25/18 00:21) Cbc With Automated Diff (02/25/18 00:21) Comprehensive Metabolic Panel (02/25/18 00:21) Protime With Inr (02/25/18 00:21) Partial Thromboplastin Time (02/25/18 00:21) Saline Lock/Iv-Start (02/25/18 00:21) Ns Iv 1000 Ml (Sodium Chloride 0.9%) (02/25/18 00:21) Type And Screen (02/25/18 00:45) Ondansetron Injection (Zofran Injectio (02/25/18 01:42) Cbc No Diff (02/25/18 02:09) Potassium Chloride (Tablet) (Klor Con Ta (02/25/18 02:15) Diltiazem Injection (Cardizem Injection) (02/25/18 02:15) Ekg Tracing (02/25/18 02:13) Monitor-Rhythm Ecg Trace Only (02/25/18 02:13) Ct Angio Chest W (02/25/18 02:49) Magnesium (02/25/18 02:49) Thyroid Analyzer (02/25/18 02:49) Fentanyl Injection (Sublimaze Injection (02/25/18 02:51) Ondansetron Injection (Zofran Injectio (02/25/18 02:56) Saline Lock/Iv-Start (02/25/18 03:00) Ns Iv 1000 Ml (Sodium Chloride 0.9%) (02/25/18 03:00) Chest 1 View, Ap/Pa Only (02/25/18 03:03) Iohexol Injection (Omnipaque 350 Mg/Ml 1 (02/25/18 03:45) Ns (Ivpb) (Sodium Chloride 0.9%) (02/25/18 03:45) Medications Given in ED Current Medications Medications Dose Ordered Sig/Grecia Route Start Time Stop Time Status Last Admin Dose Admin Iohexol 150 ml ONCE ONCE IV 02/25/18 03:45 02/25/18 03:46 DC 02/25/18 03:39 125 ML Ondansetron HCl 4 mg STK-MED ONCE .ROUTE 02/25/18 01:42 02/25/18 01:45 DC 02/25/18 02:00 8 MG Ondansetron HCl 4 mg STK-MED ONCE .ROUTE 02/25/18 02:56 02/25/18 02:59 DC 02/25/18 03:13 8 MG Potassium Chloride 20 meq ONCE ONCE PO 02/25/18 02:15 02/25/18 02:16 DC 02/25/18 02:53 20 MEQ Sodium Chloride 250 ml ONCE ONCE IV 02/25/18 03:45 02/25/18 03:46 DC 02/25/18 03:39 80 ML Sodium Chloride 1,000 ml @ 0 mls/hr Q0M ONCE IV 02/25/18 00:21 02/25/18 00:22 DC 02/25/18 00:37 0 MLS/HR Sodium Chloride 1,000 ml @ 0 mls/hr Q0M ONCE IV 02/25/18 03:00 02/25/18 03:01 UNV 02/25/18 03:13 0 MLS/HR Vital Signs/I&O 02/25/18 02/25/18 00:35 00:36 Pulse 124 113 123 138 Resp 14 B/P (MAP) 133/88 (103) 133/91 (105) 122/92 (102) 140/113 (122) Pulse Ox 98 O2 Delivery Room Air Capillary Refill : Less Than 3 Seconds Blood Pressure Mean: 105 Progress Note : Progress Note 0245--PT CONTINUES TO C/O DIZZINESS, CHEST TIGHTNESS, SHORTNESS OF BREATH AND HEART RATE 120'S-140'S NO DROP IN BLOOD PRESSURE PT GIVEN 2 LITERS OF FLUIDS AND HEART RATE STARTING TO COME DOWN ECG Initial ECG Impression Date: Feb 25, 2018 Initial ECG Impression Time: 02:34 Initial ECG Rate: 122 Initial ECG Rhythm: S.Tach Diagnostic Imaging Comments CXR--NO ACUTE PROCESS, PENDING RADIOLOGIST REVIEW CT CHEST ANGIOGRAM--NO P.E. OR OTHER ACUTE PROCESS, PER [facility] VIA FAX @ 1636 Reviewed: Reviewed by Me Departure Communication (Admissions) 0050--SPOKE WITH DR. BECKFORD, WILL CALL HIM BACK WITH ADDITIONAL TEST RESULTS 035--SPOKE WITH DR. BECKFORD AGAIN. HE ACCEPTS PT FOR ADMIT. Impression Primary Impression: Postoperative vaginal bleeding Additional Impressions: S/P vaginal hysterectomy Sinus tachycardia Disposition: ADMITTED INPATIENT Condition: Stable Admissions Decision to Admit Reason: Admit from ER (General) Decision to Admit/Date: Feb 25, 2018 Time/Decision to Admit Time: 04:00 Departure-Patient Inst. Referrals: NO,LOCAL PHYSICIAN (PCP/Family) Primary Care Physician SUSAN CHEN DO Feb 25, 2018 01:09
[2018-02-25] MEDS ORDERED: ONDANSETRON 4 MG/2 ML (SDV) Z0FRAN ONE ×2 (01:42→02:56)
[2018-02-25] MEDS ORDERED: DILTIAZEM 25 MG/5 ML INJ (CARDIZEM) VIAL IVP ONE (02:15)
[2018-02-25] MEDS ORDERED: KCL 10 MEQ TAB (MICRO K) PO ONE (02:15)
[2018-02-25 02:35] LABS: HEMOGLOBIN 11.5 G/DL (11.5-16.0); MEAN PLATELET VOLUME 9.3 FL (7.4-10.4); RED BLOOD COUNT 3.62 10^6/uL (4.35-5.85); RED CELL DISTRIBUTION WIDTH 11.7 % (10.0-14.5); WHITE BLOOD COUNT 7.3 10^3/uL (4.3-11.0)
[2018-02-25] MEDS ORDERED: fentaNYL INJECTION 100 MCG/2 ML AMP IVP STA ×2 (02:51→04:02)
[2018-02-25 03:02] LABS: MAGNESIUM 2.1 MG/DL (1.8-2.4)
[2018-02-25 03:28] LABS: TSH (THYROID ANALYZER) 1.45 UIU/ML (0.35-4.94)
[2018-02-25] MEDS ORDERED: IOHEXOL 350 MG/ML 150 ML (OMNIPAQUE 350) VIAL IV ONE (03:45)
[2018-02-25] MEDS ORDERED: NS 250 ML (IVPB) BAG IV ONE (03:45)
[2018-02-25] MEDS ORDERED: DILTIAZEM 25 MG/5 ML INJ (CARDIZEM) VIAL ONE (04:19)
[2018-02-25 05:00] VITALS: BP 112/77
[2018-02-25] MEDS ORDERED: D5 1/2 NS W/KCL 20 MEQ/L 1,000 ML IV ONE (05:12)
[2018-02-25] MEDS ORDERED: D5 1/2 NS W/KCL 20 MEQ/L 1,000 ML IV SCH (05:30)
[2018-02-25] MEDS ORDERED: fentaNYL INJECTION 100 MCG/2 ML AMP IVP PRN (05:45)
[2018-02-25] MEDS ORDERED: ONDANSETRON 4 MG/2 ML (SDV) Z0FRAN IVP PRN (05:45)
[2018-02-25 05:52] LABS: BASOPHILS # (AUTO) 0.1 10^3/uL (0.0-0.1); BASOPHILS % (AUTO) 1 % (0-10); EOSINOPHILS # (AUTO) 0.3 10^3/uL (0.0-0.3); EOSINOPHILS % (AUTO) 4 % (0-10); HEMATOCRIT 34 % (35-52); HEMOGLOBIN 11.6 G/DL (11.5-16.0); LYMPHOCYTES # (AUTO) 1.3 X 10^3 (1.0-4.0); LYMPHOCYTES % (AUTO) 18 % (12-44); MEAN CORPUSCULAR HEMOGLOBIN 32 PG (25-34); MEAN CORPUSCULAR HGB CONC 34 G/DL (32-36); MEAN CORPUSCULAR VOLUME 94 FL (80-99); MEAN PLATELET VOLUME 9.5 FL (7.4-10.4); MONOCYTES # (AUTO) 0.7 X 10^3 (0.0-1.0); MONOCYTES % (AUTO) 9 % (0-12); NEUTROPHILS # (AUTO) 5.3 X 10^3 (1.8-7.8); NEUTROPHILS % (AUTO) 69 % (42-75); PLATELET COUNT 187 10^3/uL (130-400); RED BLOOD COUNT 3.62 10^6/uL (4.35-5.85); RED CELL DISTRIBUTION WIDTH 11.8 % (10.0-14.5); WHITE BLOOD COUNT 7.7 10^3/uL (4.3-11.0)
[2018-02-25 06:00] VITALS: BP 105/66
[2018-02-25 06:11] LABS: ALANINE AMINOTRANSFERASE 17 U/L (0-55); ALBUMIN 4.2 GM/DL (3.2-4.5); ALKALINE PHOSPHATASE 58 U/L (40-136); BILIRUBIN,TOTAL 0.2 MG/DL (0.1-1.0); BUN/CREATININE RATIO 10; CALCIUM 8.6 MG/DL (8.5-10.1); CARBON DIOXIDE 22 MMOL/L (21-32); CHLORIDE 112 MMOL/L (98-107); CREATININE SERUM 0.68 MG/DL (0.60-1.30); GFR ESTIMATED > 60; GLUCOSE 104 MG/DL (70-105); POTASSIUM 4.3 MMOL/L (3.6-5.0); SODIUM 141 MMOL/L (135-145); TOTAL PROTEIN 6.1 GM/DL (6.4-8.2)
--- NOTE | 2018-02-25 06:49 | Diagnostic Imaging Report ---
PROCEDURE: CT angiography of the chest with contrast. TECHNIQUE: Multiple contiguous axial images were obtained through the chest after uneventful bolus administration of intravenous contrast. Reconstructed CTA MIP acquisitions were also performed. DATE: February 25, 2018. COMPARISON: Chest radiograph February 25, 2018. INDICATION: 27-year-old female, nausea and vomiting. Chest pain. FINDINGS: There is no identified pulmonary nodule or lung mass. There is no focal airspace consolidation. There is no pneumothorax. There is no pleural effusion. The central airways are patent. There is no identified pulmonary embolus. The main pulmonary artery is normal in caliber. The heart is not enlarged. There is no pericardial effusion. There is no abnormally enlarged mediastinal, hilar, or axillary lymph node which meets CT size criteria for adenopathy. Limited evaluation of the visualized portions of the upper abdomen is unremarkable. There is no identified acute bony abnormality. IMPRESSION: CT CHEST. 1. No identified pulmonary embolus or other acute cardiopulmonary abnormality. Dictated by: Dictated on workstation # [id number]
--- NOTE | 2018-02-25 06:53 | Diagnostic Imaging Report ---
EXAMINATION: Chest radiograph, portable AP view. DATE: February 25, 2018 at 0305 hours. INDICATION: 27-year-old female, vaginal bleeding, nausea and vomiting. Chest pain. COMPARISON: April 14, 2015. FINDINGS: Heart size and mediastinal contours are unremarkable. There is no identified pneumothorax. There is no large pleural effusion. There is no identified focal airspace consolidation. IMPRESSION: No identified acute cardiopulmonary abnormality. Dictated by: Dictated on workstation # [id number]
[2018-02-25 06:58] VITALS: BP 114/65
[2018-02-25 09:05] VITALS: BP 114/69
--- NOTE | 2018-02-25 10:16 | Diagnostic Imaging Report ---
Examination: Ultrasound pelvis Date: February 25, 2018. Indication: 27-year-old female, postop. Vaginal bleeding. History of hysterectomy one week ago.. Comparison: January 30, 2018. Technique: A sonogram of the pelvis was performed utilizing transabdominal approach assessing lugo-scale appearance and color Doppler flow. Findings: The right ovary measures 3.7 x 2.5 x 2.8 cm in size. There is a normal right ovarian follicle. There is blood flow to the right ovary based on color Doppler and spectral Doppler analysis. There is a small-volume free pelvic fluid. The left ovary is not well seen. The uterus is not seen relating to hysterectomy. Impression: 1. Unremarkable appearance of the right ovary. 2. Small-volume free pelvic fluid. 3. The left ovary is not well seen. Dictated by: Dictated on workstation # [id number]
--- NOTE | 2018-02-25 10:46 | History & Physical-OB/GYN ---
History of Present Illness History of Present Illness Reason for visit/HPI Patient admitted last night from ER due to vaginal bleeding post op from hysterectomy, as well as tachycardia likely SVT in the 120s or >. This morning the patient's HR has spontaneously resolved with IVF hydration, and her bleeding as lightened significantly. She reports little to no pain, no concerns voiced otherwise other than anxiety about further bleeding. Date of Admission Feb 25, 2018 at 3:55 am Date Seen by Provider: Feb 25, 2018 Time Seen by Provider: 10:35 I consulted on this patient on 02/25/18 10:42 Attending Physician Tommie Beckford DO Admitting Physician Radah,Local Physician Consult Allergies and Home Medications Allergies Coded Allergies: Penicillins (Unverified Allergy, Mild, RASH, CAN TAKE CEPHALEXIN, 02/12/18) Home Medications Docusate Sodium 100 Mg Capsule, 100 MG PO BID PRN for CONSTIPATION-1ST LINE Prescribed by: TOMMIE BECKFORD on 02/15/18 0725 Hydrocodone Bit/Acetaminophen 1 Ea Tablet, 2 EA PO Q6H PRN for Pain-See Instructions Prescribed by: TOMMIE BECKFORD on 02/15/18 0725 Ibuprofen 600 Mg Tablet, 600 MG PO Q6H PRN for PAIN-MODERATE Prescribed by: TOMMIE BECKFORD on 02/15/18 0725 Sertraline HCl 25 Mg Tablet, 25 MG PO DAILY, (Reported) Simethicone 80 Mg Tab.chew, 40 MG PO TID PRN for INDIGESTION 2ND LINE Prescribed by: TOMMIE BECKFORD on 02/15/18 0725 Patient Home Medication List Home Medication List Reviewed: Yes Past Ilyilak-Qofdon-Fnkrwa Hx Patient Social History Alcohol Use: Denies Use Number of Drinks Today: 2 Alcohol Beverage of Choice: Beer Recreational Drug Use: No Smoking Status: Never a Smoker Physical Abuse Screen: No 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, 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) Recent Foreign Travel: No Contact w/other who traveled: No Recent Hopitalizations: Yes (11/2017-BLEEDING/D&C, 01/2018-BLEEDING/TACHYCARDIA, 01/30/18 bleeding/cardiac ) Recent Infectious Disease Expo: No Immunizations Up To Date Tetanus Booster (TDap): Less than 5yrs Pediatric: No Date of Influenza Vaccine: Aug 14, 2015 Seasonal Allergies Seasonal Allergies: Yes Surgeries Yes (WISDOM TEETH, D&C, CYST REMOVED FROM LEFT OVARY, FALLOPIAN TUBES REMOVED) Tonsillectomy Respiratory No Cardiovascular Yes (AV BLOCK) Valvular Heart Disease Neurological Yes (MIGRAINES PRESENT STROKE-FACIAL DROOPING) Headaches /Migraines Reproductive System : No Hx Reproductive Disorders: Yes (SPONTANEOUS AB, HX OF LEFT SIDED CYSTIC MASS) Sexually Transmitted Disease: No HIV/AIDS: No Female Reproductive Disorders: Menstrual Problems 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 Gastrointestinal Yes Chronic Constipation Musculoskeletal Yes (HERNIATED DISC) Endocrine History of Endocrine Disorders: No HEENT Loss of Vision: Bilateral Hearing Impairment: Denies Cancer No Psychosocial History of Psychiatric Problem: Yes (DEPRESSION POST-) Behavioral Health Disorders: Anxiety, Depression Integumentary History of Skin or Integumenta: No Blood Transfusions History of Blood Disorders: 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) Adverse Reaction to a Blood Tr: No (N/A) Family Medical History Significant Family History: Heart Disease, Cancer, Hypertension Family Hx: Cervical cancer 19 MOTHER Hypertension 19 FATHER Thyroid disease 19 MOTHER (Hypothyroidism) Constitutional: see HPI EENTM: see HPI Respiratory: see HPI Gastrointestinal: see HPI Genitourinary: see HPI : No Musculoskeletal: see HPI Skin: see HPI Psychiatric/Neurological: See HPI, Anxiety All Other Systems Reviewed Negative Unless Noted: Yes Physical Exam Physical Exam Vital Signs Vital Signs Date Time Temp Pulse Resp B/P (MAP) Pulse Ox O2 Delivery O2 Flow Rate FiO2 02/25/18 09:05 98.1 80 18 114/69 (84) 99 Room Air 02/25/18 07:00 85 02/25/18 06:58 100 16 114/65 (81) 98 Room Air 02/25/18 06:00 98 16 105/66 (79) 99 Room Air 02/25/18 05:14 95 02/25/18 05:00 97.9 90 16 112/77 (89) 98 Room Air 02/25/18 04:51 108 14 117/81 98 Room Air 02/25/18 00:36 113 14 133/91 (105) 98 Room Air 02/25/18 00:35 124 133/88 (103) 123 122/92 (102) 138 140/113 (122) Capillary Refill : Less Than 3 Seconds Labs Laboratory Tests 02/25/18 00:15: White Blood Count 10.2, Red Blood Count 4.22L, Hemoglobin 13.2, Hematocrit 39, Mean Corpuscular Volume 93, Mean Corpuscular Hemoglobin 31, Mean Corpuscular Hemoglobin Concent 34, Red Cell Distribution Width 11.8, Platelet Count 262, Mean Platelet Volume 9.4, Neutrophils (%) (Auto) 62, Lymphocytes (%) (Auto) 27, Monocytes (%) (Auto) 7, Eosinophils (%) (Auto) 3, Basophils (%) (Auto) 1, Neutrophils # (Auto) 6.4, Lymphocytes # (Auto) 2.8, Monocytes # (Auto) 0.7, Eosinophils # (Auto) 0.3, Basophils # (Auto) 0.1, Prothrombin Time 13.2, INR Comment 1.0, Activated Partial Thromboplast Time 32, Sodium Level 142, Potassium Level 3.4L, Chloride Level 109H, Carbon Dioxide Level 20L, Anion Gap 13, Blood Urea Nitrogen 8, Creatinine 0.74, Estimat Glomerular Filtration Rate > 60, BUN/Creatinine Ratio 11, Glucose Level 106H, Calcium Level 9.7, Total Bilirubin 0.2, Aspartate Amino Transf (AST/SGOT) 14, Alanine Aminotransferase ( ALT/SGPT) 22, Alkaline Phosphatase 63, Total Protein 7.5, Albumin 4.9H 02/25/18 02:20: White Blood Count 7.3, Red Blood Count 3.62L, Hemoglobin 11.5, Hematocrit 34L, Mean Corpuscular Volume 94, Mean Corpuscular Hemoglobin 32, Mean Corpuscular Hemoglobin Concent 34, Red Cell Distribution Width 11.7, Platelet Count 193, Mean Platelet Volume 9.3, Magnesium Level 2.1, TSH [place] Testing 1.45 02/25/18 05:45: White Blood Count 7.7, Red Blood Count 3.62L, Hemoglobin 11.6, Hematocrit 34L, Mean Corpuscular Volume 94, Mean Corpuscular Hemoglobin 32, Mean Corpuscular Hemoglobin Concent 34, Red Cell Distribution Width 11.8, Platelet Count 187, Mean Platelet Volume 9.5, Neutrophils (%) (Auto) 69, Lymphocytes (%) (Auto) 18, Monocytes (%) (Auto) 9, Eosinophils (%) (Auto) 4, Basophils (%) (Auto) 1, Neutrophils # (Auto) 5.3, Lymphocytes # (Auto) 1.3, Monocytes # (Auto) 0.7, Eosinophils # (Auto) 0.3, Basophils # (Auto) 0.1, Sodium Level 141, Potassium Level 4.3, Chloride Level 112H, Carbon Dioxide Level 22, Anion Gap 7, Blood Urea Nitrogen 7, Creatinine 0.68, Estimat Glomerular Filtration Rate > 60, BUN/ Creatinine Ratio 10, Glucose Level 104, Calcium Level 8.6, Total Bilirubin 0.2, Aspartate Amino Transf (AST/SGOT) 12, Alanine Aminotransferase (ALT/SGPT) 17, Alkaline Phosphatase 58, Total Protein 6.1L, Albumin 4.2 General Appearance: No Apparent Distress Respiratory: Lungs Clear Cardiovascular: Regular Rate, Rhythm Abdominal: normal bowel sounds Vagina: Bleeding (scant amount of pad) Comments US WNL no abscess or hematoma of the vaginal cuff. Laboratory Tests Test 02/25/18 00:15 02/25/18 02:20 02/25/18 05:45 Range/Units White Blood Count 10.2 7.3 7.7 4.3-11.0 10^3/uL Red Blood Count 4.22 L 3.62 L 3.62 L 4.35-5.85 10^6/uL Hemoglobin 13.2 11.5 11.6 11.5-16.0 G/DL Hematocrit 39 34 L 34 L 35-52 % Mean Corpuscular Volume 93 94 94 80-99 FL Mean Corpuscular Hemoglobin 31 32 32 25-34 PG Mean Corpuscular Hemoglobin Concent 34 34 34 32-36 G/DL Red Cell Distribution Width 11.8 11.7 11.8 10.0-14.5 % Platelet Count 262 193 187 130-400 10^3/uL Mean Platelet Volume 9.4 9.3 9.5 7.4-10.4 FL Neutrophils (%) (Auto) 62 69 42-75 % Lymphocytes (%) (Auto) 27 18 12-44 % Monocytes (%) (Auto) 7 9 0-12 % Eosinophils (%) (Auto) 3 4 0-10 % Basophils (%) (Auto) 1 1 0-10 % Neutrophils # (Auto) 6.4 5.3 1.8-7.8 X 10^3 Lymphocytes # (Auto) 2.8 1.3 1.0-4.0 X 10^3 Monocytes # (Auto) 0.7 0.7 0.0-1.0 X 10^3 Eosinophils # (Auto) 0.3 0.3 0.0-0.3 10^3/uL Basophils # (Auto) 0.1 0.1 0.0-0.1 10^3/uL Prothrombin Time 13.2 12.2-14.7 SEC INR Comment 1.0 0.8-1.4 Activated Partial Thromboplast Time 32 24-35 SEC Sodium Level 142 141 135-145 MMOL/L Potassium Level 3.4 L 4.3 3.6-5.0 MMOL/L Chloride Level 109 H 112 H 98-107 MMOL/L Carbon Dioxide Level 20 L 22 21-32 MMOL/L Anion Gap 13 7 5-14 MMOL/L Blood Urea Nitrogen 8 7 7-18 MG/DL Creatinine 0.74 0.68 0.60-1.30 MG/DL Estimat Glomerular Filtration Rate > 60 > 60 BUN/Creatinine Ratio 11 10 Glucose Level 106 H 104 70-105 MG/DL Calcium Level 9.7 8.6 8.5-10.1 MG/DL Total Bilirubin 0.2 0.2 0.1-1.0 MG/DL Aspartate Amino Transf (AST/SGOT) 14 12 5-34 U/L Alanine Aminotransferase (ALT/SGPT) 22 17 0-55 U/L Alkaline Phosphatase 63 58 40-136 U/L Total Protein 7.5 6.1 L 6.4-8.2 GM/DL Albumin 4.9 H 4.2 3.2-4.5 GM/DL Magnesium Level 2.1 1.8-2.4 MG/DL TSH [place] Testing 1.45 0.35-4.94 UIU/ML Assessment/Plan Assessment and Plan Final Diagnosis: Vaginal bleeding post op hysterectomy 10 days, decreased SVT- resolved P: Patient stable this am plan for discharge with home restrictions until follow up in office on monday. Admission Diagnosis Vaginal bleeding post op hysterectomy 10 days SVT Admission Status: Observation Clinical Quality Measures DVT/VTE Risk/Contraindication: Risk Factor Score Per Nursin RFS Level Per Nursing on Admit: 2=Moderate TOMMIE BECKFORD DO Feb 25, 2018 10:46 am
== END 2018-02-25 10:47 | disposition home or self-care (01) ==
LOC: EDUNIT# 00:16 → ER 00:17 → WS 03:55 → UNDOADMOB 03:55 → WS 05:00 → UNDODISOB 11:40
PROVIDERS: ADMIT Obstetrics & Gynecology; ATTEND Obstetrics & Gynecology
DX: N99.820 Postprocedural hemorrhage of a genitourinary system organ or structure following a genitourinary system procedure (principal); I47.1 Supraventricular tachycardia; F41.9 Anxiety disorder, unspecified; F32.9 Major depressive disorder, single episode, unspecified
CPT/HCPCS: 36415; 71045; 71275; 76856; 80053; 83735; 84443; 85025; 85027; 85610; 85730; 86850; 86900; 86901; 93005; 93041; 96361; 96374; 96375; 96376; G0378

== ENCOUNTER 2018-09-11 11:18 | Outpatient (RCR) | payer BC, OTHER ==
[~2018-09-11 11:18] MED LIST changes: +HYDR-4226 PO; -HYDR-757 PO
== END 2018-12-10 | disposition home or self-care (01) ==
LOC: CARD 11:18
PROVIDERS: ATTEND Physician Assistant
DX: D64.9 Anemia, unspecified (principal); R07.89 Other chest pain; I34.0 Nonrheumatic mitral (valve) insufficiency; R00.2 Palpitations
CPT/HCPCS: 93225; 93226

== ENCOUNTER → 2018-09-24 | Outpatient (CLI) | payer BC, OTHER | LOC: CARD 09:34 | PROVIDERS: ATTEND Physician Assistant | DX: R07.89 Other chest pain (principal); I34.0 Nonrheumatic mitral (valve) insufficiency; R00.2 Palpitations; D64.9 Anemia, unspecified | CPT/HCPCS: 93306 ==

== ENCOUNTER → 2019-11-21 | Outpatient (CLI) | payer BC, OTHER ==
--- NOTE | 2019-11-21 11:11 | Diagnostic Imaging Report ---
INDICATION: Palpable lump in the medial and lateral aspects of the right breast. No prior studies are available for comparison. 2-D and 3-D unilateral right diagnostic mammography was performed with CAD. BB markers were placed at the areas of palpable abnormality in the medial and lateral right breast. Right breast is heterogeneously dense, limiting the sensitivity of mammography. No mass or malignant appearing microcalcifications are identified. Right axilla is unremarkable. IMPRESSION: BI-RADS 0 No mammographic features suspicious for malignancy are identified. Even so, sonographic interrogation of the areas of palpable abnormality in the medial and lateral aspect of the right breast is recommended and will be performed today. ACR BI-RADS Category 0: Incomplete. (Needs additional imaging evaluation). Result letter will be mailed to the patient. Note: At least 10% of breast cancer is not imaged by mammography. Dictated by: Dictated on workstation # [id number]
--- NOTE | 2019-11-21 11:22 | Diagnostic Imaging Report ---
INDICATION: Palpable lumps in the right breast. CORRELATION is made with diagnostic mammogram performed earlier the same day. Sonographic interrogation of the area of lump at the 10:00 and 2:00 location of the right breast was performed. No sonographic abnormality is seen. No solid or cystic mass is detected. IMPRESSION: BI-RADS Category 1 No sonographic abnormality is identified. Continued close clinical and self breast exam is recommended to confirm stability of the areas of palpable abnormality. ACR BI-RADS Category 1: Negative. Result letter will be mailed to the patient. Note: At least 10% of breast cancer is not imaged by mammography. Dictated by: Dictated on workstation # [id number]
== END ==
LOC: RAD 09:35
PROVIDERS: ATTEND Obstetrics & Gynecology
DX: N63.11 Unspecified lump in the right breast, upper outer quadrant (principal); N63.12 Unspecified lump in the right breast, upper inner quadrant